=== PATIENT | female | born 1955 | race Caucasian/White ===

== ENCOUNTER 2017-09-15 00:23 | Inpatient (IN) | payer BC, OTHER ==
[~2017-09-15] VITALS: Ht 160 cm; Wt 85.1 kg
[2017-09-15] VITALS (11 sets, daily range): BP systolic 118–146; BP diastolic 52–77
[2017-09-15] MEDS ORDERED: SODIUM CHLORIDE 0.9% 1000ML 1,000 ML IV ONE ×3 (01:07→09:43)
[2017-09-15] MEDS ORDERED: ONDANSETRON HCL 4 MG/2 ML VIAL ONE (01:07)
[2017-09-15 01:22] LABS: BASOPHILS % (AUTO) 0.4 % (0.0-5.0); HEMATOCRIT 48.7 % (36-48); LYMPHOCYTES % (AUTO) 14.6 % (21.0-51.0); MEAN CORPUSCULAR HEMOGLOBIN 29.1 pg (27.0-33.0); MEAN CORPUSCULAR HGB CONC 33.8 g/dL (32.0-36.0); MEAN CORPUSCULAR VOLUME 86.1 fL (79-99); MONOCYTES % (AUTO) 4.3 % (3.0-13.0); NEUTROPHILS % (AUTO) 80.7 % (40.0-77.0); PLATELET COUNT (AUTO) 308 K/uL (130-400); RED BLOOD CELL COUNT(AUTO) 5.66 MIL/uL (4.00-5.50); RED CELL DISTRIBUTION WIDTH 13.6 % (11.0-15.5); WHITE BLOOD COUNT (AUTO) 9.4 K/uL (4.8-10.8)
[2017-09-15 01:47] LABS: ALBUMIN 4.1 g/dL (3.5-5.0); BILIRUBIN,TOTAL 0.6 mg/dL (0.2-1.0); CREATININE 1.5 mg/dL (0.5-1.5); INFLUENZA TYPE A NEGATIVE FOR TYPE A (NEG); INFLUENZA TYPE B NEGATIVE FOR TYPE B (NEG); POTASSIUM 3.9 mmol/L (3.5-5.1); TOTAL PROTEIN, SERUM 8.9 g/dL (6.0-8.3)
[2017-09-15 01:48] LABS: CREATINE KINASE MB 2.1 ng/mL (0.5-3.6); TROPONIN I 0.07 ng/mL (0.00-0.06)
[2017-09-15 03:22] LABS: ABG BASE EXCESS -17.1 mmol/L (-2.0-3.0); ABG HCO3 8.4 mmol/L (21.0-28.0); ABG PCO2 21 mmHg (32-45)
[2017-09-15] MEDS ORDERED: SODIUM BICARB 50MEQ 50ML VIAL ONE (04:30)
[2017-09-15] MEDS ORDERED: INSULIN HUMULIN R 100 UNIT/ML 3ML ONE (04:33)
[2017-09-15] MEDS ORDERED: SODIUM CHLORIDE 0.9% 250 ML IV ONE (04:36)
[2017-09-15] MEDS ORDERED: CEFTRIAXONE SODIUM 1 GM ONE (05:47)
[2017-09-15 08:14] LABS: APPEARANCE,URINE Clear (CLEAR); BILIRUBIN,URINE Negative (NEGATIVE); COLOR,URINE Yellow (YELLOW); GLUCOSE, URINE (UA) >=1000 mg/dL (NEGATIVE); KETONES,URINE >=160 mg/dL (NEGATIVE); LEUKOCYTE ESTERASE ,URINE Negative (NEGATIVE); NITRATE,URINE Negative (NEGATIVE); OCCULT BLOOD,URINE Negative (NEGATIVE); PH,URINE 5.5 (5.0-8.0); PROTEIN,URINE POS 1+ (NEGATIVE); UROBILINOGEN,URINE 0.2 mg/dL (0.2-1.0)
[2017-09-15 08:26] LABS: AMORPHOUS SEDIMENT,UR Few /LPF (None Seen); BACTERIA,URINE Rare /HPF (None Seen); RBC,URINE 0-1 /HPF (0-1); SQUAMOUS EPITHELIAL CELL,UR Rare /LPF (0-2); WBC,URINE 0-1 /HPF (0-1)
[2017-09-15] MEDS ORDERED: ENOXAPARIN SODIUM 40 MG/0.4 ML SYRINGE SQ ONE (09:43)
[2017-09-15] MEDS ORDERED: FAMOTIDINE 20MG TAB 20 MG TAB ONE (09:44)
[2017-09-15 10:09] LABS: CREATININE 1.1 mg/dL (0.5-1.5); MAGNESIUM 1.3 mg/dL (1.80-2.40); POTASSIUM 3.4 mmol/L (3.5-5.1)
[2017-09-15 10:15] LABS: HEMOGLOBIN A1C 10.9 % (4.0-6.0)
[2017-09-15] MEDS ORDERED: MAGNESIUM 2GM PREMIX 50ML 50 ML IV ONE (10:48)
[2017-09-15] MEDS ORDERED: POTASSIUM CHLORIDE 20 MEQ ERTAB PO ONE (10:53)
[2017-09-15] MEDS ORDERED: PHARMACY COMMUNICATION MISC SCH (15:00)
[2017-09-15] MEDS ORDERED: POTASSIUM CHLORIDE 20MEQ/100ML 100 ML IV PRN (15:00)
[2017-09-15] MEDS ORDERED: ACETAMINOPHEN 325 MG TAB PO PRN (15:00)
[2017-09-15] MEDS: SODIUM CHLORIDE 0.9% 1000ML 1,000 ML IV SCH ×3 (15:00→23:25)
[2017-09-15] MEDS ORDERED: ONDANSETRON HCL 4 MG/2 ML VIAL IVP PRN (15:00)
[2017-09-15] MEDS ORDERED: LIDOCAINE HCL-MPF 1% 2ML VIAL IVP PRN (15:00)
[2017-09-15] MEDS ORDERED: INSULIN REGULAR, HUMAN 3ML 100 UNIT in SODIUM CHLORIDE 0.9% 99 ML IV PRN ×2 (15:00)
[2017-09-15] MEDS ORDERED: MAGNESIUM 2GM PREMIX 50ML 50 ML IV PRN (15:30)
[2017-09-15] MEDS: AZITHROMYCIN 250 MG TABLET PO SCH (15:57)
[2017-09-15 16:45] LABS: CREATININE 1.1 mg/dL (0.5-1.5); MAGNESIUM 1.6 mg/dL (1.80-2.40); POTASSIUM 3.1 mmol/L (3.5-5.1)
[2017-09-15] MEDS: POTASSIUM CHLORIDE 20 MEQ ERTAB PO PRN (17:41)
[2017-09-15] MEDS: MAGNESIUM 2GM PREMIX 50ML 50 ML IV PRN ×2 (17:43→23:33)
[2017-09-15 22:40] LABS: CREATININE 1.1 mg/dL (0.5-1.5); MAGNESIUM 1.8 mg/dL (1.80-2.40); POTASSIUM 3.1 mmol/L (3.5-5.1)
[2017-09-15] MEDS: POTASSIUM CHLORIDE 10% ELIXIR 20 MEQ/15 ML UDCUP PO PRN (23:34)
[2017-09-16] VITALS (20 sets, daily range): BP systolic 96–145; BP diastolic 54–79
[2017-09-16] MEDS: POTASSIUM CHLORIDE 20 MEQ ERTAB PO PRN ×5 (02:19→17:45)
[2017-09-16 04:13] LABS: HEMATOCRIT 34.7 % (36-48); MEAN CORPUSCULAR HEMOGLOBIN 29.3 pg (27.0-33.0); MEAN CORPUSCULAR HGB CONC 35.3 g/dL (32.0-36.0); MEAN CORPUSCULAR VOLUME 82.9 fL (79-99); PLATELET COUNT (AUTO) 229 K/uL (130-400); RED BLOOD CELL COUNT(AUTO) 4.19 MIL/uL (4.00-5.50); RED CELL DISTRIBUTION WIDTH 13.2 % (11.0-15.5); WHITE BLOOD COUNT (AUTO) 6.9 K/uL (4.8-10.8)
[2017-09-16 04:27] LABS: ALBUMIN 2.7 g/dL (3.5-5.0); BILIRUBIN,TOTAL 0.3 mg/dL (0.2-1.0); CREATININE 1.1 mg/dL (0.5-1.5); MAGNESIUM 2.1 mg/dL (1.80-2.40); POTASSIUM 3.1 mmol/L (3.5-5.1)
[2017-09-16] MEDS ORDERED: SODIUM CHLORIDE 0.9% 10 ML VIAL ONE (04:33)
[2017-09-16] MEDS ORDERED: WATER FOR INJECTION,STERILE 5 ML VIAL ONE (04:37)
[2017-09-16] MEDS ORDERED: ATOR10 PO (05:20)
[2017-09-16] MEDS ORDERED: DICL50TA9 PO (05:20)
[2017-09-16] MEDS ORDERED: LISI-613 PO (05:20)
[2017-09-16] MEDS ORDERED: GABA-531 PO (05:23)
[2017-09-16] MEDS ORDERED: AEC81 PO (05:23)
[2017-09-16] MEDS ORDERED: CYCL10TA7 PO (05:23)
[2017-09-16] MEDS ORDERED: SERT100T PO (05:24)
[2017-09-16] MEDS ORDERED: ZOLP10TA2 PO (05:25)
[2017-09-16] MEDS: CEFTRIAXONE SODIUM 1 GM IVP SCH (05:55)
[2017-09-16] MEDS: SODIUM CHLORIDE 0.9% 1000ML 1,000 ML IV SCH ×2 (05:55→15:59)
[2017-09-16] MEDS ORDERED: CEFTRIAXONE 1GM/D5W 50ML 50 ML IV SCH (06:00)
[2017-09-16] MEDS ORDERED: ALBUMIN (HUMAN) 25% 100 ML IV PRN (08:15)
[2017-09-16] MEDS ORDERED: 0.9% SODIUM CHLORIDE 250 ML IV BAG IV PRN (08:15)
[2017-09-16] MEDS ORDERED: HEPARIN SODIUM 5000UNIT/ML 1ML VIAL IJ PRN (08:15)
[2017-09-16] MEDS ORDERED: SODIUM CHLORIDE 0.9% 1000ML 1,000 ML IV PRN (08:15)
[2017-09-16] MEDS ORDERED: GLUCAGON 1MG KIT 1 MG ML IM PRN (08:30)
[2017-09-16] MEDS ORDERED: DEXTROSE 50%-WATER 50 ML DISP.SYRIN IV PRN (08:30)
[2017-09-16] MEDS ORDERED: INSULIN HUMULIN 70/30 100 UNIT/ML 3ML SQ SCH (08:30)
[2017-09-16] MEDS: AZITHROMYCIN 250 MG TABLET PO SCH (08:51)
[2017-09-16] MEDS: ENOXAPARIN SODIUM 40 MG/0.4 ML SYRINGE SQ SCH (08:53)
[2017-09-16] MEDS: FAMOTIDINE 20MG TAB 20 MG TAB PO SCH (08:56)
[2017-09-16] MEDS ORDERED: ENOXAPARIN SODIUM 30 MG/0.3 ML SQ SCH (09:00)
[2017-09-16 10:16] LABS: CREATININE 0.9 mg/dL (0.5-1.5); MAGNESIUM 1.8 mg/dL (1.80-2.40); POTASSIUM 3.4 mmol/L (3.5-5.1)
[2017-09-16] MEDS ORDERED: INSULIN HUMULIN R 100 UNIT/ML 3ML SQ SCH (11:30)
[2017-09-16] MEDS: MAGNESIUM 2GM PREMIX 50ML 50 ML IV PRN (11:54)
[2017-09-16] MEDS: POTASSIUM CHLORIDE 10% ELIXIR 20 MEQ/15 ML UDCUP PO PRN (11:54)
[2017-09-16] MEDS: INSULIN HUMULIN R 100 UNIT/ML 3ML SQ SCH ×3 (11:55→20:21)
[2017-09-16] MEDS ORDERED: INS7030 SQ (15:23)
[2017-09-16 16:08] LABS: HEMATOCRIT 35.4 % (36-48); MEAN CORPUSCULAR HGB CONC 34.6 g/dL (32.0-36.0); MEAN CORPUSCULAR VOLUME 83.7 fL (79-99); PLATELET COUNT (AUTO) 222 K/uL (130-400); RED BLOOD CELL COUNT(AUTO) 4.23 MIL/uL (4.00-5.50); RED CELL DISTRIBUTION WIDTH 13.4 % (11.0-15.5); WHITE BLOOD COUNT (AUTO) 6.6 K/uL (4.8-10.8)
[2017-09-16 16:14] LABS: POTASSIUM 3.6 mmol/L (3.5-5.1)
[2017-09-16] MEDS: INSULIN HUMULIN 70/30 100 UNIT/ML 3ML SQ SCH (16:18)
[2017-09-16] MEDS ORDERED: ZOLPIDEM TARTRATE 5 MG TAB ONE (21:00)
[2017-09-16] MEDS ORDERED: ZOLPIDEM TARTRATE 5 MG TAB PO ONE (21:00)
[2017-09-17] VITALS: BP 138/71
[2017-09-17 04:00] VITALS: BP 153/78
[2017-09-17] MEDS: INSULIN HUMULIN R 100 UNIT/ML 3ML SQ SCH ×6 (04:00→19:44)
[2017-09-17 05:18] LABS: HEMATOCRIT 36.1 % (36-48); MEAN CORPUSCULAR HEMOGLOBIN 29.6 pg (27.0-33.0); MEAN CORPUSCULAR HGB CONC 35.4 g/dL (32.0-36.0); MEAN CORPUSCULAR VOLUME 83.7 fL (79-99); PLATELET COUNT (AUTO) 212 K/uL (130-400); RED BLOOD CELL COUNT(AUTO) 4.31 MIL/uL (4.00-5.50); RED CELL DISTRIBUTION WIDTH 13.8 % (11.0-15.5); WHITE BLOOD COUNT (AUTO) 6.3 K/uL (4.8-10.8)
[2017-09-17 05:22] LABS: CREATININE 0.6 mg/dL (0.5-1.5); MAGNESIUM 1.9 mg/dL (1.80-2.40); POTASSIUM 3.7 mmol/L (3.5-5.1)
[2017-09-17] MEDS: CEFTRIAXONE SODIUM 1 GM IVP SCH (06:23)
[2017-09-17] MEDS: INSULIN HUMULIN 70/30 100 UNIT/ML 3ML SQ SCH ×2 (06:24→16:53)
[2017-09-17 07:38] VITALS: BP 150/76
[2017-09-17] MEDS: AZITHROMYCIN 250 MG TABLET PO SCH (09:26)
[2017-09-17] MEDS: FAMOTIDINE 20MG TAB 20 MG TAB PO SCH (09:26)
[2017-09-17] MEDS: ENOXAPARIN SODIUM 40 MG/0.4 ML SYRINGE SQ SCH (09:27)
[2017-09-17] MEDS: POTASSIUM CHLORIDE 20 MEQ ERTAB PO PRN ×2 (09:41→10:14)
[2017-09-17] MEDS: MAGNESIUM 2GM PREMIX 50ML 50 ML IV PRN (09:41)
[2017-09-17 11:42] VITALS: BP 132/67
[2017-09-17] MEDS: SODIUM CHLORIDE 0.9% 1000ML 1,000 ML IV SCH (15:29)
[2017-09-17 16:00] VITALS: BP 143/71
[2017-09-17 19:52] VITALS: BP 143/90
[2017-09-17] MEDS ORDERED: ZOLPIDEM TARTRATE 5 MG TAB PO ONE (21:30)
[2017-09-18 00:17] VITALS: BP 136/72
[2017-09-18] MEDS: INSULIN HUMULIN R 100 UNIT/ML 3ML SQ SCH ×5 (00:42→16:00)
[2017-09-18 04:06] VITALS: BP 141/82
[2017-09-18] MEDS: CEFTRIAXONE SODIUM 1 GM IVP SCH (05:41)
[2017-09-18] MEDS: INSULIN HUMULIN 70/30 100 UNIT/ML 3ML SQ SCH ×2 (05:50→16:30)
[2017-09-18 07:00] VITALS: BP 144/79
[2017-09-18] MEDS: FAMOTIDINE 20MG TAB 20 MG TAB PO SCH (09:21)
[2017-09-18] MEDS: AZITHROMYCIN 250 MG TABLET PO SCH (09:21)
[2017-09-18] MEDS: ENOXAPARIN SODIUM 40 MG/0.4 ML SYRINGE SQ SCH (09:22)
[2017-09-18 11:00] VITALS: BP 149/78
== END 2017-09-18 16:55 | disposition home or self-care (01) | DRG 682 ==
LOC: EDH 00:23 → EDHIP 04:00 → 2CH 14:09 → 2BH 15:21 → 2AH 09-16 18:16
PROVIDERS: ADMIT Internal Medicine; ATTEND Internal Medicine
DX: N17.9 Acute kidney failure, unspecified (principal); J18.9 Pneumonia, unspecified organism; E11.10 Type 2 diabetes mellitus with ketoacidosis without coma; E87.1 Hypo-osmolality and hyponatremia; N39.0 Urinary tract infection, site not specified; R26.2 Difficulty in walking, not elsewhere classified; E87.6 Hypokalemia; E83.42 Hypomagnesemia; E66.9 Obesity, unspecified; G47.00 Insomnia, unspecified; E87.8 Other disorders of electrolyte and fluid balance, not elsewhere classified; I10 Essential (primary) hypertension; E78.5 Hyperlipidemia, unspecified; Z90.710 Acquired absence of both cervix and uterus; Z90.49 Acquired absence of other specified parts of digestive tract; Z88.0 Allergy status to penicillin; Z79.4 Long term (current) use of insulin; Z91.14 Patient's other noncompliance with medication regimen; Z86.73 Personal history of transient ischemic attack (TIA), and cerebral infarction without residual deficits; Z86.19 Personal history of other infectious and parasitic diseases; Z68.33 Body mass index [BMI] 33.0-33.9, adult
CPT/HCPCS: 36415; 36600; 71010; 80048; 80053; 81001; 82009; 82550; 82553; 82803; 82948; 83036; 83605; 83690; 83735; 83874; 84484; 85025; 85027; 87804; 93005; J0696; J1650; J1815; J2405; J3475; J3480; J3490; J7030

== ENCOUNTER 2017-11-22 13:03 | Inpatient (IN) | payer BC, MEDICARE ==
[~2017-11-22] VITALS: Ht 160 cm; Wt 95.3 kg
[~2017-11-22 13:03] MED LIST: AEC81 PO; ATOR10 PO; CYCL10TA7 PO; DICL50TA9 PO; GABA-531 PO; INS7030 SQ; LISI-613 PO; SERT100T PO; ZOLP10TA2 PO
[2017-11-22] MEDS ORDERED: SODIUM CHLORIDE 0.9% 1000ML 3,000 ML IV ONE (13:58)
[2017-11-22 14:00] LABS: HEMATOCRIT 36.1 % (36-48); MEAN CORPUSCULAR HEMOGLOBIN 28.7 pg (27.0-33.0); MEAN CORPUSCULAR VOLUME 84.4 fL (79-99); PLATELET COUNT (AUTO) 344 K/uL (130-400); RED BLOOD CELL COUNT(AUTO) 4.28 MIL/uL (4.00-5.50); RED CELL DISTRIBUTION WIDTH 13.7 % (11.0-15.5)
[2017-11-22 14:14] LABS: WHITE BLOOD COUNT (AUTO) 31.4 K/uL (4.8-10.8)
[2017-11-22] MEDS ORDERED: CEFTRIAXONE SODIUM 1 GM ONE (14:24)
[2017-11-22 14:40] LABS: ALANINE AMINOTRANSFERASE 12 U/L (12-78); ALBUMIN 2.8 g/dL (3.5-5.0); ASPARTATE AMINOTRANSFERASE 11 U/L (10-37); BILIRUBIN,TOTAL 0.9 mg/dL (0.2-1.0); CARBON DIOXIDE 26 mmol/L (21-32); CREATINE KINASE MB < 0.5 ng/mL (0.5-3.6); CREATINE KINASE, TOTAL 34 U/L (21-232); CREATININE 1.3 mg/dL (0.5-1.5); GLOMERULAR FILTR. RATE CALC 44 mL/min (>60); GLUCOSE,RANDOM 386 mg/dL (70-105); MYOGLOBIN 62 ng/mL (10-92); POTASSIUM 3.7 mmol/L (3.5-5.1); SODIUM SERUM 126 mmol/L (136-145); TOTAL PROTEIN, SERUM 8.5 g/dL (6.0-8.3); TROPONIN I < 0.04 ng/mL (0.00-0.06); UREA NITROGEN, BLOOD 23 mg/dL (7-18)
[2017-11-22 14:41] LABS: INR 1.14 (0.85-1.15); PARTIAL THROMBOPLASTIN TIME 35.1 SEC (26.3-35.5); PROTHROMBIN TIME 11.9 SEC (9.6-11.6)
[2017-11-22 14:44] LABS: CHLORIDE 88 mmol/L (101-111)
[2017-11-22 14:57] LABS: LYMPHOCYTES % (MANUAL) 7 % (22-44); MAN.DIFF COMMENT-IMPRESSION MANUAL DIFFERENTIAL; MONOCYTES % (MANUAL) 1 % (2-9); SEGMENTED NEUTROPHILS % 92 % (40-70)
[2017-11-22 14:58] LABS: PLATELET MORPHOLOGY COMMENT ADEQUATE
[2017-11-22] MEDS ORDERED: TRAMADOL HCL 50 MG TABLET ONE (16:41)
[2017-11-23] MEDS ORDERED: VANCOMYCIN 1GM+NS 250ML 250 ML IV ONE (03:13)
[2017-11-23 07:08] LABS: BASOPHILS % (AUTO) 0.2 % (0.0-5.0); EOSINOPHILS % (AUTO) 0.1 % (0.0-8.0); LYMPHOCYTES % (AUTO) 4.2 % (21.0-51.0); MEAN CORPUSCULAR HEMOGLOBIN 28.5 pg (27.0-33.0); MEAN CORPUSCULAR HGB CONC 33.4 g/dL (32.0-36.0); MEAN CORPUSCULAR VOLUME 85.4 fL (79-99); MONOCYTES % (AUTO) 4.8 % (3.0-13.0); NEUTROPHILS % (AUTO) 90.7 % (40.0-77.0); PLATELET COUNT (AUTO) 324 K/uL (130-400); RED BLOOD CELL COUNT(AUTO) 3.99 MIL/uL (4.00-5.50); RED CELL DISTRIBUTION WIDTH 13.6 % (11.0-15.5); WHITE BLOOD COUNT (AUTO) 22.9 K/uL (4.8-10.8)
[2017-11-23 07:20] LABS: CREATININE 0.8 mg/dL (0.5-1.5); POTASSIUM 3.9 mmol/L (3.5-5.1)
[2017-11-23] MEDS ORDERED: INSULIN HUMULIN R 100 UNIT/ML 3ML ONE ×2 (09:25→19:41)
[2017-11-23 12:12] LABS: APPEARANCE,URINE Clear (CLEAR); BILIRUBIN,URINE Negative (NEGATIVE); COLOR,URINE Yellow (YELLOW); GLUCOSE, URINE (UA) >=1000 mg/dL (NEGATIVE); KETONES,URINE 40 mg/dL (NEGATIVE); LEUKOCYTE ESTERASE ,URINE Small (NEGATIVE); NITRATE,URINE Positive (NEGATIVE); OCCULT BLOOD,URINE Moderate (NEGATIVE); PH,URINE 5.5 (5.0-8.0); PROTEIN,URINE POS 1+ (NEGATIVE); UROBILINOGEN,URINE 0.2 mg/dL (0.2-1.0)
[2017-11-23 12:31] LABS: BACTERIA,URINE Few /HPF (None Seen); SQUAMOUS EPITHELIAL CELL,UR 0-2 /LPF (0-2); WBC,URINE 26-50 /HPF (0-1)
[2017-11-23] MEDS ORDERED: CEFAZOLIN SODIUM 1 GM VIAL ONE (17:29)
[2017-11-23] MEDS ORDERED: ACETAMINOPHEN 325 MG TAB ONE (17:29)
[2017-11-23] MEDS ORDERED: CEFAZOLIN 1GM / D5W 50ML 50 ML IV SCH (17:45)
[2017-11-23] MEDS ORDERED: PHARMACY COMMUNICATION MISC SCH (17:45)
[2017-11-23] MEDS ORDERED: METOPROLOL TARTRATE 1 MG/ML 5ML VIAL IV ONE ×2 (19:18→20:46)
[2017-11-23] MEDS ORDERED: VANCOMYCIN PROTOCOL PER PHARMACY IV SCH (19:45)
[2017-11-23] MEDS ORDERED: METOPROLOL TARTRATE 25 MG TAB ONE (20:32)
[2017-11-23 21:04] LABS: CREATINE KINASE MB 1.1 ng/mL (0.5-3.6); MYOGLOBIN 95 ng/mL (10-92); TROPONIN I < 0.04 ng/mL (0.00-0.06)
[2017-11-23 21:14] LABS: CREATINE KINASE, TOTAL 588 U/L (21-232)
[2017-11-23] MEDS ORDERED: COMPOUND IV REFRIGERATED 1 EACH IVSOLN MISC PRN (21:15)
[2017-11-23 21:30] VITALS: BP 114/78
[2017-11-23] MEDS ORDERED: VANCOMYCIN 2 GM in SODIUM CHLORIDE 0.9% 500ML 500 ML IV ONE (22:00)
[2017-11-24] VITALS (7 sets, daily range): BP systolic 129–156; BP diastolic 68–90
[2017-11-24] MEDS ORDERED: CEFAZOLIN SODIUM 1 GM VIAL IVP ONE
[2017-11-24] MEDS ORDERED: DEXTROSE 50%-WATER 50 ML DISP.SYRIN IV PRN (00:45)
[2017-11-24] MEDS ORDERED: GLUCAGON 1MG KIT 1 MG ML IM PRN (00:45)
[2017-11-24] MEDS ORDERED: CEFAZOLIN SODIUM 1 GM VIAL ONE (02:42)
[2017-11-24 04:13] LABS: BASOPHILS % (AUTO) 0.1 % (0.0-5.0); EOSINOPHILS % (AUTO) 0.1 % (0.0-8.0); HEMATOCRIT 33.8 % (36-48); LYMPHOCYTES % (AUTO) 5.8 % (21.0-51.0); MEAN CORPUSCULAR HEMOGLOBIN 28.4 pg (27.0-33.0); MEAN CORPUSCULAR HGB CONC 33.4 g/dL (32.0-36.0); MONOCYTES % (AUTO) 5.4 % (3.0-13.0); NEUTROPHILS % (AUTO) 88.6 % (40.0-77.0); PLATELET COUNT (AUTO) 325 K/uL (130-400); RED BLOOD CELL COUNT(AUTO) 3.98 MIL/uL (4.00-5.50); RED CELL DISTRIBUTION WIDTH 13.8 % (11.0-15.5); WHITE BLOOD COUNT (AUTO) 16.6 K/uL (4.8-10.8)
[2017-11-24 04:44] LABS: ALANINE AMINOTRANSFERASE 21 U/L (12-78); ASPARTATE AMINOTRANSFERASE 38 U/L (10-37); BILIRUBIN,TOTAL 0.4 mg/dL (0.2-1.0); CARBON DIOXIDE 25 mmol/L (21-32); CHLORIDE 97 mmol/L (101-111); CREATINE KINASE MB 0.9 ng/mL (0.5-3.6); CREATININE 0.7 mg/dL (0.5-1.5); GLOMERULAR FILTR. RATE CALC 90 mL/min (>60); GLUCOSE,RANDOM 262 mg/dL (70-105); MYOGLOBIN 61 ng/mL (10-92); POTASSIUM 3.8 mmol/L (3.5-5.1); SODIUM SERUM 132 mmol/L (136-145); TOTAL PROTEIN, SERUM 7.6 g/dL (6.0-8.3); TROPONIN I < 0.04 ng/mL (0.00-0.06); UREA NITROGEN, BLOOD 11 mg/dL (7-18)
[2017-11-24 05:05] LABS: CREATINE KINASE, TOTAL 479 U/L (21-232)
[2017-11-24] MEDS: VANCOMYCIN 1GM+NS 250ML 250 ML IV SCH ×2 (05:18→17:34)
[2017-11-24] MEDS: INSULIN HUMULIN R 100 UNIT/ML 3ML SQ SCH ×4 (06:10→21:02)
[2017-11-24 08:27] LABS: CREATINE KINASE MB 0.8 ng/mL (0.5-3.6); MYOGLOBIN 63 ng/mL (10-92); TROPONIN I < 0.04 ng/mL (0.00-0.06)
[2017-11-24 08:38] LABS: CREATINE KINASE, TOTAL 404 U/L (21-232)
[2017-11-24] MEDS: GABAPENTIN 300 MG CAPSULE PO SCH ×3 (10:08→20:59)
[2017-11-24] MEDS: ASPIRIN 81 MG EC TAB PO SCH (10:08)
[2017-11-24] MEDS: ACETAMINOPHEN 325 MG TAB PO PRN ×2 (10:08→23:09)
[2017-11-24] MEDS: LISINOPRIL 20 MG TABLET PO SCH (10:09)
[2017-11-24] MEDS: SERTRALINE HCL 50 MG TABLET PO SCH (10:09)
[2017-11-24] MEDS: MAGNESIUM 2GM PREMIX 50ML 50 ML IV PRN (10:09)
[2017-11-24] MEDS: METOPROLOL TARTRATE 25 MG TAB PO SCH ×2 (10:09→20:59)
[2017-11-24] MEDS: SODIUM CHLORIDE 0.9% 1000ML 1,000 ML IV SCH (10:11)
[2017-11-24] MEDS ORDERED: CEFAZOLIN 1GM / D5W 50ML 50 ML IV SCH (11:00)
[2017-11-24] MEDS ORDERED: PHARMACY COMMUNICATION MISC SCH (11:30)
[2017-11-24] MEDS: MAG HYDROX/AL HYDROX/SIMETH 30 ML, LIDOCAINE HCL 2% VISCOUS 30 ML, DIPHENHYDRAMINE HCL ... PO SCH ×9 (11:45→23:12)
[2017-11-24] MEDS ORDERED: COMPOUND PO MISCELLANEOUS 1 EACH MISC MISC PRN (13:00)
[2017-11-24] MEDS ORDERED: GADOBENATE DIMEGLUMINE 20 ML IV ONE (16:09)
[2017-11-24] MEDS ORDERED: CEFAZOLIN SODIUM 1 GM VIAL IVP SCH (17:00)
[2017-11-24] MEDS: CEFAZOLIN SODIUM 1 GM VIAL IVP SCH ×2 (17:33→21:00)
[2017-11-24] MEDS: INSULIN HUMULIN 70/30 100 UNIT/ML 3ML SQ SCH (17:38)
[2017-11-24] MEDS: ATORVASTATIN CALCIUM 10 MG TABLET PO SCH (20:59)
[2017-11-24] MEDS: ZOLPIDEM TARTRATE 5 MG TAB PO SCH (21:00)
[2017-11-25] VITALS (12 sets, daily range): BP systolic 112–159; BP diastolic 54–107
[2017-11-25] MEDS: MORPHINE SULFATE 2 MG/ML 1ML SYG IVP PRN ×2 (02:08→20:12)
[2017-11-25] MEDS ORDERED: METOPROLOL TARTRATE 1 MG/ML 5ML VIAL IV ONE ×4 (02:26→04:46)
[2017-11-25] MEDS: CEFAZOLIN SODIUM 1 GM VIAL IVP SCH ×3 (03:05→21:15)
[2017-11-25] MEDS: SODIUM CHLORIDE 0.9% 1000ML 1,000 ML IV SCH ×2 (03:05→21:31)
[2017-11-25] MEDS: MAG HYDROX/AL HYDROX/SIMETH 30 ML, LIDOCAINE HCL 2% VISCOUS 30 ML, DIPHENHYDRAMINE HCL ... PO SCH ×12 (05:01→23:45)
[2017-11-25] MEDS: VANCOMYCIN 1GM+NS 250ML 250 ML IV SCH ×2 (05:01→16:58)
[2017-11-25] MEDS: INSULIN HUMULIN 70/30 100 UNIT/ML 3ML SQ SCH ×2 (06:19→16:34)
[2017-11-25] MEDS: INSULIN HUMULIN R 100 UNIT/ML 3ML SQ SCH ×4 (06:21→21:00)
[2017-11-25] MEDS: MAGNESIUM 2GM PREMIX 50ML 50 ML IV PRN (07:57)
[2017-11-25] MEDS: LISINOPRIL 20 MG TABLET PO SCH (08:02)
[2017-11-25] MEDS: ASPIRIN 81 MG EC TAB PO SCH (08:02)
[2017-11-25] MEDS: METOPROLOL TARTRATE 25 MG TAB PO SCH ×3 (08:06→21:16)
[2017-11-25] MEDS: SERTRALINE HCL 50 MG TABLET PO SCH (08:11)
[2017-11-25] MEDS: GABAPENTIN 300 MG CAPSULE PO SCH ×3 (08:11→21:16)
[2017-11-25] MEDS: METOPROLOL TARTRATE 1 MG/ML 5ML VIAL IV PRN ×2 (08:45→09:52)
[2017-11-25] MEDS: ACETAMINOPHEN 325 MG TAB PO PRN (09:46)
[2017-11-25] MEDS ORDERED: POTASSIUM CHLORIDE 20MEQ/100ML 100 ML IV ONE (10:27)
[2017-11-25] MEDS: ATORVASTATIN CALCIUM 10 MG TABLET PO SCH (21:16)
[2017-11-25] MEDS: ZOLPIDEM TARTRATE 5 MG TAB PO SCH (21:20)
[2017-11-26 03:33] VITALS: BP 124/71
[2017-11-26] MEDS: CEFAZOLIN SODIUM 1 GM VIAL IVP SCH ×3 (04:21→21:26)
[2017-11-26 04:22] LABS: MEAN CORPUSCULAR HEMOGLOBIN 28.8 pg (27.0-33.0); MEAN CORPUSCULAR HGB CONC 33.9 g/dL (32.0-36.0); MEAN CORPUSCULAR VOLUME 84.9 fL (79-99); NUCLEATED RED BLOOD CELLS 0.1 % (0.0-0.19); PLATELET COUNT (AUTO) 439 K/uL (130-400); RED BLOOD CELL COUNT(AUTO) 3.66 MIL/uL (4.00-5.50); RED CELL DISTRIBUTION WIDTH 13.8 % (11.0-15.5); WHITE BLOOD COUNT (AUTO) 10.7 K/uL (4.8-10.8)
[2017-11-26 04:35] LABS: ALBUMIN 1.7 g/dL (3.5-5.0); BILIRUBIN,TOTAL 0.4 mg/dL (0.2-1.0); CREATININE 0.7 mg/dL (0.5-1.5); MAGNESIUM 1.4 mg/dL (1.80-2.40); POTASSIUM 3.1 mmol/L (3.5-5.1); TOTAL PROTEIN, SERUM 7.5 g/dL (6.0-8.3)
[2017-11-26] MEDS ORDERED: POTASSIUM CHLORIDE 20 MEQ ERTAB PO ONE (05:33)
[2017-11-26] MEDS: MAG HYDROX/AL HYDROX/SIMETH 30 ML, LIDOCAINE HCL 2% VISCOUS 30 ML, DIPHENHYDRAMINE HCL ... PO SCH ×12 (05:45→23:45)
[2017-11-26] MEDS ORDERED: COMPOUND IV REFRIGERATED 1 EACH IVSOLN MISC PRN (06:45)
[2017-11-26] MEDS: INSULIN HUMULIN R 100 UNIT/ML 3ML SQ SCH ×4 (06:52→21:30)
[2017-11-26] MEDS: INSULIN HUMULIN 70/30 100 UNIT/ML 3ML SQ SCH ×2 (06:53→16:30)
[2017-11-26] MEDS ORDERED: VANCOMYCIN 1.25 GM in SODIUM CHLORIDE 0.9% 250 ML IV SCH (07:00)
[2017-11-26 07:30] VITALS: BP 139/84
[2017-11-26] MEDS: ASPIRIN 81 MG EC TAB PO SCH (08:51)
[2017-11-26] MEDS: LISINOPRIL 20 MG TABLET PO SCH (08:51)
[2017-11-26] MEDS: SERTRALINE HCL 50 MG TABLET PO SCH ×2 (08:51→21:27)
[2017-11-26] MEDS: GABAPENTIN 300 MG CAPSULE PO SCH ×3 (08:51→21:28)
[2017-11-26] MEDS: METOPROLOL TARTRATE 25 MG TAB PO SCH ×3 (08:52→21:28)
[2017-11-26] MEDS: VANCOMYCIN 1.25 GM in SODIUM CHLORIDE 0.9% 250 ML IV SCH ×2 (08:52→21:26)
[2017-11-26] MEDS: MORPHINE SULFATE 2 MG/ML 1ML SYG IVP PRN ×2 (10:41→22:42)
[2017-11-26] MEDS: MAGNESIUM 2GM PREMIX 50ML 50 ML IV PRN (10:42)
[2017-11-26 11:18] VITALS: BP 150/72
[2017-11-26] MEDS ORDERED: ENOXAPARIN SODIUM 30 MG/0.3 ML SQ SCH (12:15)
[2017-11-26 16:38] VITALS: BP 139/77
[2017-11-26] MEDS ORDERED: POTASSIUM CHLORIDE 20 MEQ ERTAB PO PRN (19:15)
[2017-11-26] MEDS ORDERED: LIDOCAINE HCL-MPF 1% 2ML VIAL IVP PRN (19:15)
[2017-11-26] MEDS ORDERED: POTASSIUM CHLORIDE 10% ELIXIR 20 MEQ/15 ML UDCUP PO PRN (19:15)
[2017-11-26] MEDS ORDERED: POTASSIUM CHLORIDE 20MEQ/100ML 100 ML IV PRN (19:15)
[2017-11-26 19:43] VITALS: BP 151/73
[2017-11-26] MEDS: SODIUM CHLORIDE 0.9% 1000ML 1,000 ML IV SCH ×2 (20:00→21:35)
[2017-11-26] MEDS: ZOLPIDEM TARTRATE 5 MG TAB PO SCH (21:27)
[2017-11-26] MEDS: MAGNESIUM OXIDE 400 MG TABLET PO SCH (21:27)
[2017-11-26] MEDS: ATORVASTATIN CALCIUM 20 MG TABLET PO SCH (21:27)
[2017-11-26 23:37] VITALS: BP 142/77
[2017-11-27 03:29] VITALS: BP 147/78
[2017-11-27] MEDS: CEFAZOLIN SODIUM 1 GM VIAL IVP SCH ×3 (04:36→23:05)
[2017-11-27] MEDS: MAG HYDROX/AL HYDROX/SIMETH 30 ML, LIDOCAINE HCL 2% VISCOUS 30 ML, DIPHENHYDRAMINE HCL ... PO SCH ×12 (05:45→23:11)
[2017-11-27] MEDS: INSULIN HUMULIN R 100 UNIT/ML 3ML SQ SCH ×4 (06:40→23:01)
[2017-11-27] MEDS: INSULIN HUMULIN 70/30 100 UNIT/ML 3ML SQ SCH ×2 (06:53→17:13)
[2017-11-27 07:00] VITALS: BP 163/82
[2017-11-27] MEDS: ASPIRIN 81 MG EC TAB PO SCH (09:58)
[2017-11-27] MEDS: METOPROLOL TARTRATE 25 MG TAB PO SCH ×3 (09:58→23:07)
[2017-11-27] MEDS: GABAPENTIN 300 MG CAPSULE PO SCH ×3 (09:58→23:10)
[2017-11-27] MEDS: MAGNESIUM OXIDE 400 MG TABLET PO SCH ×2 (09:58→23:07)
[2017-11-27] MEDS: LISINOPRIL 20 MG TABLET PO SCH (09:59)
[2017-11-27] MEDS: ENOXAPARIN SODIUM 30 MG/0.3 ML SQ SCH (09:59)
[2017-11-27] MEDS: VANCOMYCIN 1.25 GM in SODIUM CHLORIDE 0.9% 250 ML IV SCH (10:05)
[2017-11-27 11:00] VITALS: BP 128/74
[2017-11-27] MEDS: MORPHINE SULFATE 2 MG/ML 1ML SYG IVP PRN (12:11)
[2017-11-27 16:00] VITALS: BP 136/87
[2017-11-27 19:56] VITALS: BP 146/76
[2017-11-27] MEDS: VANCOMYCIN 1.5 GM in SODIUM CHLORIDE 0.9% 250 ML IV SCH (23:06)
[2017-11-27] MEDS: SERTRALINE HCL 50 MG TABLET PO SCH (23:07)
[2017-11-27] MEDS: ATORVASTATIN CALCIUM 20 MG TABLET PO SCH (23:07)
[2017-11-27] MEDS: ZOLPIDEM TARTRATE 5 MG TAB PO SCH (23:23)
[2017-11-27 23:54] VITALS: BP 164/81
[2017-11-28] MEDS: SODIUM CHLORIDE 0.9% 1000ML 1,000 ML IV SCH (03:49)
[2017-11-28 03:58] VITALS: BP 149/80
[2017-11-28] MEDS: CEFAZOLIN SODIUM 1 GM VIAL IVP SCH ×3 (05:16→20:44)
[2017-11-28] MEDS: MAG HYDROX/AL HYDROX/SIMETH 30 ML, LIDOCAINE HCL 2% VISCOUS 30 ML, DIPHENHYDRAMINE HCL ... PO SCH ×12 (05:24→23:45)
[2017-11-28] MEDS: ACETAMINOPHEN 325 MG TAB PO PRN (05:25)
[2017-11-28] MEDS: INSULIN HUMULIN R 100 UNIT/ML 3ML SQ SCH ×4 (06:17→20:41)
[2017-11-28] MEDS: INSULIN HUMULIN 70/30 100 UNIT/ML 3ML SQ SCH ×2 (06:41→18:02)
[2017-11-28 07:00] VITALS: BP 155/80
[2017-11-28] MEDS: MAGNESIUM OXIDE 400 MG TABLET PO SCH ×2 (08:09→20:45)
[2017-11-28] MEDS: LISINOPRIL 20 MG TABLET PO SCH (08:09)
[2017-11-28] MEDS: ENOXAPARIN SODIUM 30 MG/0.3 ML SQ SCH (08:09)
[2017-11-28] MEDS: ASPIRIN 81 MG EC TAB PO SCH (08:10)
[2017-11-28] MEDS: VANCOMYCIN 1.5 GM in SODIUM CHLORIDE 0.9% 250 ML IV SCH ×2 (08:14→20:45)
[2017-11-28] MEDS: GABAPENTIN 300 MG CAPSULE PO SCH ×3 (08:14→20:46)
[2017-11-28] MEDS: METOPROLOL TARTRATE 25 MG TAB PO SCH (08:14)
[2017-11-28 09:09] LABS: BASOPHILS % (AUTO) 0.5 % (0.0-5.0); EOSINOPHILS % (AUTO) 1.4 % (0.0-8.0); HEMATOCRIT 33.9 % (36-48); LYMPHOCYTES % (AUTO) 16.1 % (21.0-51.0); MEAN CORPUSCULAR HEMOGLOBIN 28.3 pg (27.0-33.0); MEAN CORPUSCULAR HGB CONC 33.2 g/dL (32.0-36.0); MEAN CORPUSCULAR VOLUME 85.2 fL (79-99); PLATELET COUNT (AUTO) 571 K/uL (130-400); RED BLOOD CELL COUNT(AUTO) 3.97 MIL/uL (4.00-5.50); RED CELL DISTRIBUTION WIDTH 14.3 % (11.0-15.5); WHITE BLOOD COUNT (AUTO) 8.7 K/uL (4.8-10.8)
[2017-11-28 09:30] LABS: CREATININE 0.7 mg/dL (0.5-1.5); POTASSIUM 3.7 mmol/L (3.5-5.1)
[2017-11-28 11:00] VITALS: BP 134/76
[2017-11-28] MEDS: MORPHINE SULFATE 2 MG/ML 1ML SYG IVP PRN ×2 (13:09→22:04)
[2017-11-28 16:00] VITALS: BP 140/83
[2017-11-28 19:51] VITALS: BP 89/55
[2017-11-28] MEDS: SERTRALINE HCL 50 MG TABLET PO SCH (20:45)
[2017-11-28] MEDS: ATORVASTATIN CALCIUM 20 MG TABLET PO SCH (20:45)
[2017-11-28 21:13] VITALS: BP 158/90
[2017-11-28] MEDS: ZOLPIDEM TARTRATE 5 MG TAB PO SCH (23:05)
[2017-11-29] VITALS (7 sets, daily range): BP systolic 140–165; BP diastolic 70–94
[2017-11-29] MEDS: METOPROLOL TARTRATE 25 MG TAB PO SCH ×3 (00:16→20:53)
[2017-11-29] MEDS: CEFAZOLIN SODIUM 1 GM VIAL IVP SCH ×3 (03:54→19:54)
[2017-11-29] MEDS: MAG HYDROX/AL HYDROX/SIMETH 30 ML, LIDOCAINE HCL 2% VISCOUS 30 ML, DIPHENHYDRAMINE HCL ... PO SCH ×12 (05:45→23:23)
[2017-11-29] MEDS: INSULIN HUMULIN R 100 UNIT/ML 3ML SQ SCH ×4 (06:13→20:51)
[2017-11-29] MEDS: SODIUM CHLORIDE 0.9% 1000ML 1,000 ML IV SCH (08:00)
[2017-11-29] MEDS: INSULIN HUMULIN 70/30 100 UNIT/ML 3ML SQ SCH ×2 (08:06→16:44)
[2017-11-29] MEDS: ASPIRIN 81 MG EC TAB PO SCH (08:06)
[2017-11-29] MEDS: LISINOPRIL 20 MG TABLET PO SCH (08:06)
[2017-11-29] MEDS: MAGNESIUM OXIDE 400 MG TABLET PO SCH ×2 (08:06→20:52)
[2017-11-29] MEDS: ENOXAPARIN SODIUM 30 MG/0.3 ML SQ SCH (08:07)
[2017-11-29] MEDS: GABAPENTIN 300 MG CAPSULE PO SCH ×3 (08:09→20:53)
[2017-11-29] MEDS: VANCOMYCIN 1.5 GM in SODIUM CHLORIDE 0.9% 250 ML IV SCH ×2 (08:10→19:54)
[2017-11-29] MEDS: MORPHINE SULFATE 2 MG/ML 1ML SYG IVP PRN ×2 (10:59→19:38)
[2017-11-29] MEDS: ATORVASTATIN CALCIUM 20 MG TABLET PO SCH (20:52)
[2017-11-29] MEDS: SERTRALINE HCL 50 MG TABLET PO SCH (20:52)
[2017-11-29] MEDS: ZOLPIDEM TARTRATE 5 MG TAB PO SCH (22:20)
[2017-11-30] MEDS: CEFAZOLIN SODIUM 1 GM VIAL IVP SCH ×3 (03:22→20:27)
[2017-11-30 04:11] VITALS: BP 159/93
[2017-11-30 04:37] LABS: CREATININE 0.7 mg/dL (0.5-1.5); MAGNESIUM 1.4 mg/dL (1.80-2.40); POTASSIUM 3.8 mmol/L (3.5-5.1)
[2017-11-30] MEDS ORDERED: POTASSIUM CHLORIDE 10 MEQ/TAB.SA PO ONE ×2 (04:52)
[2017-11-30] MEDS: MAGNESIUM 2GM PREMIX 50ML 50 ML IV PRN (04:57)
[2017-11-30] MEDS: MAG HYDROX/AL HYDROX/SIMETH 30 ML, LIDOCAINE HCL 2% VISCOUS 30 ML, DIPHENHYDRAMINE HCL ... PO SCH ×12 (05:45→23:51)
[2017-11-30] MEDS: INSULIN HUMULIN R 100 UNIT/ML 3ML SQ SCH ×4 (06:04→20:32)
[2017-11-30] MEDS: INSULIN HUMULIN 70/30 100 UNIT/ML 3ML SQ SCH ×2 (06:06→17:32)
[2017-11-30 07:00] VITALS: BP 157/87
[2017-11-30] MEDS: METOPROLOL TARTRATE 25 MG TAB PO SCH ×2 (09:22→20:32)
[2017-11-30] MEDS: VANCOMYCIN 1.5 GM in SODIUM CHLORIDE 0.9% 250 ML IV SCH ×2 (09:22→20:27)
[2017-11-30] MEDS: MAGNESIUM OXIDE 400 MG TABLET PO SCH ×2 (09:22→20:33)
[2017-11-30] MEDS: ASPIRIN 81 MG EC TAB PO SCH (09:22)
[2017-11-30] MEDS: GABAPENTIN 300 MG CAPSULE PO SCH ×3 (09:22→20:28)
[2017-11-30] MEDS: LISINOPRIL 20 MG TABLET PO SCH (09:22)
[2017-11-30] MEDS: ENOXAPARIN SODIUM 30 MG/0.3 ML SQ SCH (09:24)
[2017-11-30 11:00] VITALS: BP 151/72
[2017-11-30] MEDS: ACETAMINOPHEN 325 MG TAB PO PRN (13:23)
[2017-11-30 16:00] VITALS: BP 142/74
[2017-11-30 20:02] VITALS: BP 163/99
[2017-11-30] MEDS: ZOLPIDEM TARTRATE 5 MG TAB PO SCH (20:27)
[2017-11-30] MEDS: ATORVASTATIN CALCIUM 20 MG TABLET PO SCH (20:28)
[2017-11-30] MEDS: SERTRALINE HCL 50 MG TABLET PO SCH (20:28)
[2017-11-30] MEDS: MORPHINE SULFATE 2 MG/ML 1ML SYG IVP PRN (20:33)
[2017-11-30 23:31] VITALS: BP 149/84
[2017-12-01 03:30] VITALS: BP 165/84
[2017-12-01] MEDS: CEFAZOLIN SODIUM 1 GM VIAL IVP SCH ×3 (04:35→20:14)
[2017-12-01] MEDS: MAG HYDROX/AL HYDROX/SIMETH 30 ML, LIDOCAINE HCL 2% VISCOUS 30 ML, DIPHENHYDRAMINE HCL ... PO SCH ×3 (05:45)
[2017-12-01] MEDS: INSULIN HUMULIN R 100 UNIT/ML 3ML SQ SCH ×4 (06:17→21:27)
[2017-12-01] MEDS: INSULIN HUMULIN 70/30 100 UNIT/ML 3ML SQ SCH ×2 (06:44→16:34)
[2017-12-01] MEDS ORDERED: PHARMACY COMMUNICATION MISC SCH (08:00)
[2017-12-01 08:02] VITALS: BP 156/89
[2017-12-01] MEDS: MAGNESIUM OXIDE 400 MG TABLET PO SCH ×2 (08:42→20:17)
[2017-12-01] MEDS: GABAPENTIN 300 MG CAPSULE PO SCH ×3 (08:42→20:16)
[2017-12-01] MEDS: LISINOPRIL 20 MG TABLET PO SCH (08:43)
[2017-12-01] MEDS: METOPROLOL TARTRATE 25 MG TAB PO SCH ×2 (08:43→20:17)
[2017-12-01] MEDS: ASPIRIN 81 MG EC TAB PO SCH (08:43)
[2017-12-01] MEDS: ENOXAPARIN SODIUM 30 MG/0.3 ML SQ SCH (08:44)
[2017-12-01] MEDS: MORPHINE SULFATE 2 MG/ML 1ML SYG IVP PRN ×2 (08:44→21:36)
[2017-12-01] MEDS ORDERED: VANCOMYCIN 1.75 GM in SODIUM CHLORIDE 0.9% 250 ML IV SCH (10:15)
[2017-12-01] MEDS: [UNRECOGNIZED DRUG - OTHER] IV SCH ×2 (10:38→20:19)
[2017-12-01] MEDS: VANCOMYCIN IV SCH ×2 (10:38→20:19)
[2017-12-01 10:50] LABS: INR 1.13 (0.85-1.15); PROTHROMBIN TIME 11.8 SEC (9.6-11.6)
[2017-12-01 11:41] VITALS: BP 142/79
[2017-12-01 16:00] VITALS: BP 138/77
[2017-12-01 20:13] VITALS: BP 158/79
[2017-12-01] MEDS: ATORVASTATIN CALCIUM 20 MG TABLET PO SCH (20:16)
[2017-12-01] MEDS: ZOLPIDEM TARTRATE 5 MG TAB PO SCH (20:16)
[2017-12-01] MEDS: SERTRALINE HCL 50 MG TABLET PO SCH (20:17)
[2017-12-02] VITALS (7 sets, daily range): BP systolic 132–154; BP diastolic 73–91
[2017-12-02] MEDS: CEFAZOLIN SODIUM 1 GM VIAL IVP SCH ×3 (03:34→20:50)
[2017-12-02] MEDS: INSULIN HUMULIN R 100 UNIT/ML 3ML SQ SCH ×4 (05:45→22:22)
[2017-12-02] MEDS: INSULIN HUMULIN 70/30 100 UNIT/ML 3ML SQ SCH ×2 (05:50→17:34)
[2017-12-02 06:21] LABS: INR 1.09 (0.85-1.15); PARTIAL THROMBOPLASTIN TIME 29.1 SEC (26.3-35.5); PROTHROMBIN TIME 11.4 SEC (9.6-11.6)
[2017-12-02] MEDS: GABAPENTIN 300 MG CAPSULE PO SCH ×3 (09:06→22:26)
[2017-12-02] MEDS: MAGNESIUM OXIDE 400 MG TABLET PO SCH ×2 (09:06→22:16)
[2017-12-02] MEDS: LISINOPRIL 20 MG TABLET PO SCH (09:07)
[2017-12-02] MEDS: ASPIRIN 81 MG EC TAB PO SCH (09:07)
[2017-12-02] MEDS: METOPROLOL TARTRATE 25 MG TAB PO SCH ×2 (09:07→22:17)
[2017-12-02] MEDS: ENOXAPARIN SODIUM 30 MG/0.3 ML SQ SCH (09:08)
[2017-12-02] MEDS: VANCOMYCIN IV SCH ×2 (09:09→22:26)
[2017-12-02] MEDS: [UNRECOGNIZED DRUG - OTHER] IV SCH ×2 (09:09→22:26)
[2017-12-02] MEDS: MORPHINE SULFATE 2 MG/ML 1ML SYG IVP PRN ×3 (10:54→20:50)
[2017-12-02] MEDS: ATORVASTATIN CALCIUM 20 MG TABLET PO SCH (22:16)
[2017-12-02] MEDS: SERTRALINE HCL 50 MG TABLET PO SCH (22:17)
[2017-12-02] MEDS: ZOLPIDEM TARTRATE 5 MG TAB PO SCH (22:17)
[2017-12-03 03:31] VITALS: BP 153/75
[2017-12-03] MEDS: CEFAZOLIN SODIUM 1 GM VIAL IVP SCH ×3 (04:17→22:04)
[2017-12-03] MEDS: INSULIN HUMULIN R 100 UNIT/ML 3ML SQ SCH ×4 (06:21→22:11)
[2017-12-03 07:00] VITALS: BP 160/86
[2017-12-03] MEDS: INSULIN HUMULIN 70/30 100 UNIT/ML 3ML SQ SCH ×2 (07:14→16:53)
[2017-12-03] MEDS: LISINOPRIL 20 MG TABLET PO SCH (08:20)
[2017-12-03] MEDS: GABAPENTIN 300 MG CAPSULE PO SCH ×3 (08:20→22:11)
[2017-12-03] MEDS: MAGNESIUM OXIDE 400 MG TABLET PO SCH ×2 (08:20→22:05)
[2017-12-03] MEDS: METOPROLOL TARTRATE 25 MG TAB PO SCH ×2 (08:20→22:05)
[2017-12-03] MEDS: ASPIRIN 81 MG EC TAB PO SCH (08:21)
[2017-12-03] MEDS: [UNRECOGNIZED DRUG - OTHER] IV SCH ×2 (08:22→22:11)
[2017-12-03] MEDS: VANCOMYCIN IV SCH ×2 (08:22→22:11)
[2017-12-03] MEDS: ENOXAPARIN SODIUM 30 MG/0.3 ML SQ SCH (08:22)
[2017-12-03 11:00] VITALS: BP 142/75
[2017-12-03 16:00] VITALS: BP 150/78
[2017-12-03 19:00] VITALS: BP 151/67
[2017-12-03] MEDS: MORPHINE SULFATE 2 MG/ML 1ML SYG IVP PRN (22:04)
[2017-12-03] MEDS: ZOLPIDEM TARTRATE 5 MG TAB PO SCH (22:05)
[2017-12-03] MEDS: SERTRALINE HCL 50 MG TABLET PO SCH (22:05)
[2017-12-03] MEDS: ATORVASTATIN CALCIUM 20 MG TABLET PO SCH (22:05)
[2017-12-03 23:43] VITALS: BP 140/76
[2017-12-04 03:45] VITALS: BP 151/80
[2017-12-04] MEDS: CEFAZOLIN SODIUM 1 GM VIAL IVP SCH ×2 (04:28→11:49)
[2017-12-04] MEDS: INSULIN HUMULIN R 100 UNIT/ML 3ML SQ SCH ×3 (06:31→16:30)
[2017-12-04] MEDS: INSULIN HUMULIN 70/30 100 UNIT/ML 3ML SQ SCH ×2 (06:34→17:00)
[2017-12-04 07:00] VITALS: BP 140/78
[2017-12-04] MEDS: METOPROLOL TARTRATE 25 MG TAB PO SCH (08:34)
[2017-12-04] MEDS: ASPIRIN 81 MG EC TAB PO SCH (08:34)
[2017-12-04] MEDS: GABAPENTIN 300 MG CAPSULE PO SCH ×2 (08:35→13:40)
[2017-12-04] MEDS: LISINOPRIL 20 MG TABLET PO SCH (08:35)
[2017-12-04] MEDS: MAGNESIUM OXIDE 400 MG TABLET PO SCH (08:35)
[2017-12-04] MEDS: ENOXAPARIN SODIUM 30 MG/0.3 ML SQ SCH (08:36)
[2017-12-04] MEDS: VANCOMYCIN IV SCH (09:41)
[2017-12-04] MEDS: [UNRECOGNIZED DRUG - OTHER] IV SCH (09:41)
[2017-12-04] MEDS: MORPHINE SULFATE 2 MG/ML 1ML SYG IVP PRN ×3 (09:43→18:05)
[2017-12-04 16:20] VITALS: BP 141/75
[2017-12-04] MEDS ORDERED: VANC1.5P12 IV (17:54)
[2017-12-04] MEDS ORDERED: CEFA1SYR IV (17:56)
== END 2017-12-04 18:46 | DRG 871 ==
LOC: EDH 13:03 → EDHIP 17:50 → 3CH 11-23 20:38 → 2CH 11-23 21:08 → 2AH 11-25 16:26
PROVIDERS: ADMIT Internal Medicine; ATTEND Internal Medicine
PROC: 02HV33Z Insertion of Infusion Device into Superior Vena Cava, Percutaneous Approach (ICD-10-PCS; principal; 2017-12-02)
DX: A41.9 Sepsis, unspecified organism (principal); E43 Unspecified severe protein-calorie malnutrition; E11.40 Type 2 diabetes mellitus with diabetic neuropathy, unspecified; L02.416 Cutaneous abscess of left lower limb; L03.116 Cellulitis of left lower limb; E87.1 Hypo-osmolality and hyponatremia; N39.0 Urinary tract infection, site not specified; E66.9 Obesity, unspecified; E78.5 Hyperlipidemia, unspecified; E83.42 Hypomagnesemia; F17.200 Nicotine dependence, unspecified, uncomplicated; I10 Essential (primary) hypertension; I48.91 Unspecified atrial fibrillation; J45.909 Unspecified asthma, uncomplicated; F41.9 Anxiety disorder, unspecified; Z68.37 Body mass index [BMI] 37.0-37.9, adult; Z91.030 Bee allergy status; Z91.013 Allergy to seafood; Z88.0 Allergy status to penicillin; Z88.8 Allergy status to other drugs, medicaments and biological substances; Z74.01 Bed confinement status; Z79.82 Long term (current) use of aspirin; Z86.14 Personal history of Methicillin resistant Staphylococcus aureus infection; Z86.73 Personal history of transient ischemic attack (TIA), and cerebral infarction without residual deficits; Z99.3 Dependence on wheelchair; Z90.711 Acquired absence of uterus with remaining cervical stump
CPT/HCPCS: 36415; 71045; 73723; 78582; 80048; 80053; 80202; 81001; 82550; 82553; 82948; 83605; 83735; 83874; 84132; 84484; 85007; 85025; 85027; 85060; 85378; 85610; 85730; 87040; 87070; 87076; 87088; 88313; 93005; 93306; 93971; 97039; A4218; A9540; A9558; A9577; J0690; J0696; J1650; J1815; J3370; J3475; J3480; J3490; J7030; J7040

== ENCOUNTER 2018-10-22 08:23 | Emergency (ER) | payer OTHER ==
[~2018-10-22 08:23] MED LIST changes: +CEFA1SYR IV; +VANC1.5P12 IV
[2018-10-22 09:58] LABS: POTASSIUM 4.3 mmol/L (3.5-5.1)
[2018-10-22 10:13] LABS: EOSINOPHILS % (AUTO) 5.8 % (0.0-8.0)
[2018-10-22 10:20] LABS: BASOPHILS % (AUTO) 0.7 % (0.0-5.0); HEMATOCRIT 34.7 % (36-48); LYMPHOCYTES % (AUTO) 22.8 % (21.0-51.0); MEAN CORPUSCULAR HEMOGLOBIN 29.2 pg (27.0-33.0); MEAN CORPUSCULAR HGB CONC 33.9 g/dL (32.0-36.0); MEAN CORPUSCULAR VOLUME 86.2 fL (79-99); MONOCYTES % (AUTO) 7.5 % (3.0-13.0); NEUTROPHILS % (AUTO) 63.2 % (40.0-77.0); PLATELET COUNT (AUTO) 272 K/uL (130-400); RED BLOOD CELL COUNT(AUTO) 4.03 MIL/uL (4.00-5.50); RED CELL DISTRIBUTION WIDTH 14.1 % (11.0-15.5); WHITE BLOOD COUNT (AUTO) 7.6 K/uL (4.8-10.8)
[2018-10-22 11:08] LABS: PLATELET MORPHOLOGY ADEQUATE
== END 2018-10-22 11:28 | disposition home or self-care (01) ==
LOC: EDH 08:23
DX: S02.2XXA Fracture of nasal bones, initial encounter for closed fracture (principal); S90.31XA Contusion of right foot, initial encounter; R04.0 Epistaxis; E11.9 Type 2 diabetes mellitus without complications; Z79.4 Long term (current) use of insulin; E78.5 Hyperlipidemia, unspecified; I10 Essential (primary) hypertension; Z90.49 Acquired absence of other specified parts of digestive tract; Z90.710 Acquired absence of both cervix and uterus; Z87.891 Personal history of nicotine dependence; Z86.73 Personal history of transient ischemic attack (TIA), and cerebral infarction without residual deficits; Z91.81 History of falling; Z91.041 Radiographic dye allergy status; Z88.0 Allergy status to penicillin; Z91.013 Allergy to seafood; W06.XXXA Fall from bed, initial encounter; Y93.89 Activity, other specified; Y92.89 Other specified places as the place of occurrence of the external cause; Y99.8 Other external cause status
CPT/HCPCS: 36415; 70450; 73630; 80048; 85025

== ENCOUNTER 2019-08-06 09:03 | Inpatient (IN) | payer OTHER ==
[~2019-08-06] VITALS: Ht 91.4 cm; Wt 86.7 kg
[2019-08-06] VITALS (18 sets, daily range): BP systolic 119–167; BP diastolic 59–104
[~2019-08-06 09:03] MED LIST changes: -CEFA1SYR IV; +CLIN300C9 PO; -DICL50TA9 PO; +HYDR25TA PO; +METF-526 PO; +METO50TA18 PO; +TRAZ150T79 PO; -VANC1.5P12 IV; +ZALE10CA26 PO; -ZOLP10TA2 PO
[2019-08-06 09:23] LABS: BASOPHILS % (AUTO) 0.4 % (0.0-5.0); LYMPHOCYTES % (AUTO) 10.7 % (21.0-51.0); MEAN CORPUSCULAR HEMOGLOBIN 29.1 pg (27.0-33.0); MEAN CORPUSCULAR HGB CONC 31.8 g/dL (32.0-36.0); MEAN CORPUSCULAR VOLUME 91.5 fL (79-99); MONOCYTES % (AUTO) 3.8 % (3.0-13.0); NEUTROPHILS % (AUTO) 85.1 % (40.0-77.0); PLATELET COUNT (AUTO) 338 K/uL (130-400); RED BLOOD CELL COUNT(AUTO) 5.03 MIL/uL (4.00-5.50); RED CELL DISTRIBUTION WIDTH 13.8 % (11.0-15.5); WHITE BLOOD COUNT (AUTO) 11.6 K/uL (4.8-10.8)
[2019-08-06 09:38] LABS: INR 1.01 (0.85-1.15); PARTIAL THROMBOPLASTIN TIME 25.6 SEC (26.3-35.5); PROTHROMBIN TIME 10.6 SEC (9.6-11.6)
[2019-08-06] MEDS ORDERED: INSULIN HUMULIN R 100 UNIT/ML 3ML ONE (09:40)
[2019-08-06 09:43] LABS: ALBUMIN 4.2 g/dL (3.5-5.0); BILIRUBIN,TOTAL 0.6 mg/dL (0.2-1.0); CREATININE 1.7 mg/dL (0.5-1.5); POTASSIUM 5.1 mmol/L (3.5-5.1); TOTAL PROTEIN, SERUM 8.4 g/dL (6.0-8.3)
[2019-08-06 10:19] LABS: ABG HCO3 6.3 mmol/L (21.0-28.0); ABG OXYGEN SATURATION 97.1 % (95.0-99.0); ABG PCO2 20 mmHg (32-45)
[2019-08-06] MEDS ORDERED: SODIUM CHLORIDE 0.9% 100 ML IV ONE (10:21)
[2019-08-06] MEDS ORDERED: SODIUM BICARB 50MEQ 50ML VIAL ONE (10:28)
[2019-08-06 10:29] LABS: APPEARANCE,URINE Clear (CLEAR); BILIRUBIN,URINE Negative (NEGATIVE); COLOR,URINE Yellow (YELLOW); GLUCOSE, URINE (UA) >=1000 mg/dL (NEGATIVE); KETONES,URINE >=160 mg/dL (NEGATIVE); LEUKOCYTE ESTERASE ,URINE Negative (NEGATIVE); NITRATE,URINE Negative (NEGATIVE); OCCULT BLOOD,URINE Trace (NEGATIVE); PROTEIN,URINE POS 1+ mg/dL (NEGATIVE); UROBILINOGEN,URINE 0.2 mg/dL (0.2-1.0)
[2019-08-06] MEDS ORDERED: ONDANSETRON HCL 4 MG/2 ML VIAL ONE (10:38)
[2019-08-06 10:56] LABS: SQUAMOUS EPITHELIAL CELL,UR Few /HPF (0-2)
[2019-08-06 10:57] LABS: BACTERIA,URINE Few /HPF (None Seen); RBC,URINE None Seen /HPF (0-1); WBC,URINE 0-1 /HPF (0-1)
--- NOTE | 2019-08-06 12:35 | NUR ---
PATIENT ARRIVED TO 217 FROM ER. CONNECTED TO [facility]SM[facility]. INSULIN DRIP AT 10ML/HR. DR PAGAN IN TO SEE PATIENT.
--- NOTE | 2019-08-06 12:45 | NUR ---
PATIENT EXPRESSED WANTING TO TO DR PAGAN. STATING THAT SHE STOPPED TAKING HER MEDICATIONS ON PURPOSE. 1:1 ORDERED. CRUISE COUNSELOR AND CHARGE NURSE INFORMED.
[2019-08-06 13:27] LABS: CREATININE 1.4 mg/dL (0.5-1.5); POTASSIUM 3.7 mmol/L (3.5-5.1)
[2019-08-06] MEDS ORDERED: INSULIN REGULAR, HUMAN 3ML 100 UNIT in SODIUM CHLORIDE 0.9% 99 ML IV PRN ×2 (13:30)
[2019-08-06] MEDS ORDERED: POTASSIUM CHLORIDE 20MEQ/100ML 100 ML IV PRN (13:30)
[2019-08-06] MEDS ORDERED: LIDOCAINE HCL-MPF 1% 2ML VIAL IV PRN (13:30)
[2019-08-06] MEDS ORDERED: POTASSIUM CHLORIDE 10% ELIXIR 20 MEQ/15 ML UDCUP PO PRN (13:30)
[2019-08-06] MEDS: LACTATED RINGERS 1000ML 1,000 ML IV SCH ×2 (14:00→20:40)
[2019-08-06] MEDS: GABAPENTIN 100 MG CAPSULE PO SCH ×2 (15:25→21:29)
[2019-08-06] MEDS: POTASSIUM CHLORIDE 20 MEQ ERTAB PO PRN ×2 (15:25→21:28)
[2019-08-06] MEDS: DEXTROSE 5 %-0.45 % NACL 1,000 ML IV PRN ×2 (15:26→21:48)
--- NOTE | 2019-08-06 15:45 | NUR ---
PATIENT'S IN TO VISIT. STATES HE WILL BRING HER HOME MEDICATIONS TOMORROW
[2019-08-06 20:47] LABS: CREATININE 1.3 mg/dL (0.5-1.5); MAGNESIUM 1.3 mg/dL (1.80-2.40); POTASSIUM 3.8 mmol/L (3.5-5.1)
[2019-08-06] MEDS ORDERED: MAGNESIUM 2GM PREMIX 50ML 50 ML IV ONE (21:26)
[2019-08-06] MEDS ORDERED: DIPHENHYDRAMINE HCL 25 MG CAPSULE ONE (21:27)
[2019-08-06] MEDS ORDERED: MAGNESIUM 2GM PREMIX 50ML 50 ML IV PRN (21:30)
[2019-08-07] VITALS (12 sets, daily range): BP systolic 131–168; BP diastolic 54–113
[2019-08-07] MEDS: DIPHENHYDRAMINE HCL 25 MG CAPSULE PO PRN ×2 (02:43→09:24)
[2019-08-07] MEDS: DEXTROSE 5 %-0.45 % NACL 1,000 ML IV PRN ×2 (02:43→10:07)
[2019-08-07] MEDS: LACTATED RINGERS 1000ML 1,000 ML IV SCH ×2 (03:20→10:00)
[2019-08-07 03:22] LABS: CREATININE 1.2 mg/dL (0.5-1.5); MAGNESIUM 1.7 mg/dL (1.80-2.40); POTASSIUM 3.8 mmol/L (3.5-5.1)
[2019-08-07] MEDS: POTASSIUM CHLORIDE 20 MEQ ERTAB PO PRN ×4 (04:42→09:25)
[2019-08-07 07:12] LABS: MAGNESIUM 2.4 mg/dL (1.80-2.40); POTASSIUM 3.3 mmol/L (3.5-5.1)
[2019-08-07] MEDS: GABAPENTIN 100 MG CAPSULE PO SCH ×2 (08:41→22:11)
[2019-08-07] MEDS: ACETAMINOPHEN 325 MG TAB PO PRN (09:25)
[2019-08-07 12:18] LABS: CREATININE 0.9 mg/dL (0.5-1.5); POTASSIUM 4.4 mmol/L (3.5-5.1)
--- NOTE | 2019-08-07 12:23 | NUR ---
PATIENT'S GAP WAS 10 THIS MORNING, NOW 9. WILL GIVE LANTUS AND TURN OFF DRIP IN [address] PAGAN ORDERED TO TRANSFER TO MEDICAL WITH 1:1 ONCE THE DRIP IS OFF.
[2019-08-07] MEDS: INSULIN GLARGINE 100 UNITS/ML 10 ML VIAL SQ SCH ×2 (12:27→22:09)
[2019-08-07] MEDS ORDERED: HYDR-3421 PO (12:57)
--- NOTE | 2019-08-07 13:05 | NUR ---
PATIENT YELLING AT HER . I ASKED HER TO STOP YELLING THERE ARE OTHER PATIENTS IN THE ICU. SHE CONTINUED YELLING AND SAID SHE WILL START "THIS PROCESS OVER WHEN SHE GETS OUT OF HERE" WHEN ASKED WHAT LOY SAID "STOPPING MY MEDICATIONS! I AM TIRED OF LIVING LIKE THIS. GET OUT!" I LEFT THE ROOM.
--- NOTE | 2019-08-07 13:15 | NUR ---
SECURITY RELEASED PATIENT'S BELONGINGS (PURSE, WALLET, CLOTHES, AND RINGS) TO THE PATIENT'S . PATIENT'S INSTRUCTED THAT SHE CANNOT HAVE ANYTHING IN HER ROOM. VERBALIZED UNDERSTANDING.
--- NOTE | 2019-08-07 13:25 | NUR ---
VERIFIED PATIENT'S HAD ALL BELONGINGS HE LEFT. HE HAD GIVEN HER RINGS BACK. RINGS TAKEN FROM PATIENT AND GIVEN BACK TO PATIENT'S . PATIENT EDUCATED IT IS FOR HER SAFETY. PATIENT BECAME VERY, HITTING BED WITH CLOSED FISTS, AND TOLD ME TO LEAVE HER ROOM. 1:1 SITTER REMAINS AT BEDSIDE. CHARGE NURSE IS AWARE.
--- NOTE | 2019-08-07 15:06 | NUR ---
D/C PLAN CM spoke to pt regarding d/c planning. Pt lives with spouse. Denies having any current home health or provider services. States she has hospital bed with [facility]ka and w/yolanda. Reports spouse can assist in care as needed. Pt states she does have glucometer at home but does not monitor blood sugars. Pt is pending psych consultation and medical clearance for possible placement in inpatient psych facility. CM to f/u. Addendum: 08/07/19 at 1509 by ROLANDO MERAZ CM Amended: Links added.
[2019-08-07] MEDS ORDERED: FLU VACC QS2019-20 36MOS UP/PF 60 MCG/0.5 ML ML IM SCH (16:00)
[2019-08-07] MEDS ORDERED: PNEUMOCOCCAL VACCINE POLYVALENT 0.5 ML/VIAL [PPV] IM SCH (16:00)
[2019-08-07] MEDS: INSULIN HUMULIN R 100 UNIT/ML 3ML SQ SCH ×2 (16:35→22:10)
--- NOTE | 2019-08-07 16:47 | NUR ---
REPORT GIVEN TO GENESIS ON 3RD FLOOR. INFORMED OF PENDING PSYCH CONSULT AND VACCINES. ALL QUESTIONS ANSWERED. PATIENT MOVED TO 311 IN THE BED WITH 2 PCP AND IN STABLE CONDITION.
[2019-08-08] VITALS (7 sets, daily range): BP systolic 112–149; BP diastolic 50–89
[2019-08-08] MEDS: LORAZEPAM 1 MG TABLET PO PRN (04:32)
[2019-08-08] MEDS: INSULIN HUMULIN R 100 UNIT/ML 3ML SQ SCH ×4 (06:58→20:42)
[2019-08-08] MEDS: GABAPENTIN 100 MG CAPSULE PO SCH ×2 (11:54→20:34)
--- NOTE | 2019-08-08 14:51 | NUR ---
No visit from Dr. Whitney yet. Called to confirm he is aware; stated he had not been notified of consult. Gave him pt info; stated he will see hector.
[2019-08-08] MEDS ORDERED: TRAZODONE HCL 50 MG TAB PO PRN (19:00)
--- NOTE | 2019-08-08 19:15 | NUR ---
REPORT RECEIVED REPORT FROM AM SHIFT NURSE, KANCHAN. DR TYSON AND DR MARTINEZ IN MAKING ROUNDS. DR TYSON VERBALIZES THAT PT IS MEDICALLY CLEARED AND NEEDS TO BE TRANSFERRED TO [facility] IN PT. FURTHER STATED THAT DR MARTINEZ DID NOT REMOVE PT FROM SUICIDAL WATCH.
[2019-08-08] MEDS: HYDROXYZINE HCL 10 MG TABLET PO PRN (20:34)
--- NOTE | 2019-08-08 20:34 | NUR ---
MEDS SHIFT ASSESSMENT DONE, PLEASE REFER TO CHART. DUE MEDS ADMINISTERED, TOLERATED WELL. KEPT RESTED AND COMFORTABLE. SITTER AT BEDSIDE. WILL MONITOR CLOSELY. Addendum: 08/09/19 at 0142 by CORA BARRIENTOS RN RN Amended: Links added.
[2019-08-08] MEDS: INSULIN GLARGINE 100 UNITS/ML 10 ML VIAL SQ SCH (20:42)
[2019-08-09] MEDS: LORAZEPAM 1 MG TABLET PO PRN (00:15)
--- NOTE | 2019-08-09 00:15 | NUR ---
MEDS PT IS COMPLAINING OF ITCHING ON PIV SITE TO RT FOREARM. PT REQUESTED TO REMOVE PIV. DISCONTINUED SITE WITH CATHETER INTACT. PT UNABLE TO SUSTAIN SLEEP. MEDICATED WITH ATIVAN PO AND ENCOURAGED TO RELAX AND REST. SITTER AT BEDSIDE. WILL MONITOR CLOSELY.
[2019-08-09] MEDS: HYDROXYZINE HCL 10 MG TABLET PO PRN ×3 (02:30→21:15)
--- NOTE | 2019-08-09 02:30 | NUR ---
ITCHING PT AWAKENS AND CLAIMS OF GENERALIZED ITCHING. NO NOTED REDNESS NOR RASH. MEDICATED WITH ATARAX PO. KEPT RESTED AND COMFORTABLE IN BED. SITTER AT BEDSIDE. WILL MONITOR CLOSELY.
--- NOTE | 2019-08-09 03:52 | NUR ---
UPSET PT COMPLAINTS THAT BOTTOM STOP ATTACHER HAVE NOT GIVEN HER PILLS. EXPLAINED TO PT THAT ALL MEDS ORDERED BY WAS ALREADY ADMINISTERED. PT GOT UPSET AND THROW HER GOWN AND WATER ACROSS THE ROOM. PT REFUSED TO BATHE AT THIS TIME. TRIED TO CALM PT DOWN BUT KICKED BOTTOM STOP ATTACHER OUT OF ROOM. SITTER AT BEDSIDE. Addendum: 08/09/19 at 0354 by CORA BARRIENTOS RN RN Amended: Links added.
[2019-08-09 04:00] VITALS: BP 119/69
[2019-08-09] MEDS: INSULIN HUMULIN R 100 UNIT/ML 3ML SQ SCH ×4 (07:06→21:18)
--- NOTE | 2019-08-09 07:06 | NUR ---
INSULIN PT IS RESTING AND IS CALM AT THIS TIME. DUE INSULIN DOSE ADMINISTERED, TOLERATED WELL. ENDORSING TO AM SHIFT RN, KANCHAN, FOR MORE CARE AND MANAGEMENT.
[2019-08-09 08:00] VITALS: BP 138/76
[2019-08-09] MEDS: GABAPENTIN 100 MG CAPSULE PO SCH ×2 (08:06→21:15)
[2019-08-09] MEDS: ACETAMINOPHEN 325 MG TAB PO PRN (11:32)
[2019-08-09 11:36] VITALS: BP 134/87
--- NOTE | 2019-08-09 12:09 | NUR ---
RDSCREEN Inaccurate Ht entered. Ht 5'3" as per Pt. RN notified. Pt admitted for DKA. Pt with major depression, suicidal ideation, 1:1 observation. Psych consulted as per EMR. Upon visit, Pt reports eating well, no GI distress, PO intake at 100%. Pt LBM 08/05/19. Pt reports Lack of bowel and bladder control with desire of bedside commode. Pt allergies: Shellfish, Bee Pollen. Pt monitored labs: BG 184, BUN 5. Recommend to continue current diet order. RD to continue to monitor. Please notify RD as additional nutrition concerns arise. Thank you. Addendum: 08/09/19 at [address] Amended: Links added.
--- NOTE | 2019-08-09 15:23 | NUR ---
SCREENER INPUT MET W TROPICAL SCREENER, AND WAS TOLD THAT PT DOES NOT MEET IP CRITERIA- SCREENER WILL ATTEMPT TO GET OUTPATIENT SERVICES. PT VERBALIZING WANTS TO GO HOME. AT BEDSIDE, WILL PROVIDE TRANSPORT. PT CARRIE DONE THIS MORNING. UPDATED PORFIRIO HEMPHILL; PT CAN GO TO [facility]D WITH PT NOTES FOR SET UP OF HH
[2019-08-09 15:32] VITALS: BP 156/73
[2019-08-09 20:00] VITALS: BP 142/75
--- NOTE | 2019-08-09 20:10 | NUR ---
MD DR TYSON IN TO SEE PT. NEW ORDERS GIVEN, PLEASE REFER TO CPOE.
[2019-08-09] MEDS ORDERED: INSULIN GLARGINE 100 UNITS/ML 10 ML VIAL SQ SCH (21:00)
[2019-08-09] MEDS ORDERED: ZOLPIDEM TARTRATE 5 MG TAB PO SCH (21:00)
[2019-08-09] MEDS: INSULIN GLARGINE 100 UNITS/ML 10 ML VIAL SQ SCH (21:19)
--- NOTE | 2019-08-09 21:20 | NUR ---
MEDS SHIFT ASSESSMENT DONE, PLEASE REFER TO CHART. DUE MEDS ADMINISTERED, TOLERATED WELL. KEPT RESTED AND COMFORTABLE IN BED. ICE PROVIDED PER PT REQUEST. WET DIAPER CHANGED AND RE-POSITIONED COMFORTABLY IN BED. KEPT COMFORTABLE IN BED WITH HOB ELEVATED. CALL LIGHT WITHIN REACH. WILL MONITOR PT. Addendum: 08/09/19 at 2238 by CORA BARRIENTOS RN RN Amended: Links added.
[2019-08-09] MEDS: FLUTICASONE PROPIONATE 50MCG/SPRAY 16 GM BOTTLE EN SCH (21:55)
[2019-08-10] VITALS: BP 141/72
--- NOTE | 2019-08-10 01:54 | NUR ---
ROUNDS PT RESTING WELL, FAIRLY ASLEEP. NOTED OCCASIONAL COUGHING BUT NOT IN RESPIRATORY DISTRESS. KEPT RESTED AND COMFORTABLE. CALL LIGHT WITHIN REACH. WILL MONITOR PT.
[2019-08-10 04:00] VITALS: BP 136/90
[2019-08-10] MEDS: INSULIN HUMULIN R 100 UNIT/ML 3ML SQ SCH ×4 (05:44→21:46)
--- NOTE | 2019-08-10 05:47 | NUR ---
ROUNDS PT RESTING WELL, NO DISTRESS NOTED. NO CONCERNS VERBALIZED. KEPT COMFORTABLE. FOR MORE CARE.
[2019-08-10 08:00] VITALS: BP 142/72
[2019-08-10] MEDS: GABAPENTIN 100 MG CAPSULE PO SCH ×2 (08:20→21:35)
[2019-08-10] MEDS: ACETAMINOPHEN 325 MG TAB PO PRN (08:21)
[2019-08-10] MEDS: FLUTICASONE PROPIONATE 50MCG/SPRAY 16 GM BOTTLE EN SCH ×2 (08:21→21:36)
[2019-08-10 12:00] VITALS: BP 153/86
--- NOTE | 2019-08-10 14:18 | NUR ---
SENT INFO TO [facility] SPOKE TO PT. TROPICAL SCREENER AT BEDSIDE- STATES HE WAS THERE FOR FOLLOW UP ADVISED THE PATIENT RE HER CHOICES FOR HOME HEALTH - HAS USED [facility] IN THE PAST AMADEO RECD/SIGNED. ALSO SPECIFICALLY ASKED PT IF I COULD SEND THE TROPICAL SCREENING TO [facility] AND GOT A CONSNET FOR THAT WELL SEND PKT AT 1215- CALLED AGAIN AT 1400, WS ADVISED THEY HAD NOT RECD THE REFERRAL, RE FAXED. WAITING ON DR. TYSON FOR DC ORDERS. WILL FAX THE SCREENING IF THE STATES THEY ARE IN NETWORK. PT IN AGREEMENT.
[2019-08-10 16:00] VITALS: BP 126/74
--- NOTE | 2019-08-10 16:40 | NUR ---
BRIGHT STAR DECLINED PT, STATES PREVIOUS PATIENT , NON COMPLIANT WITH PT, CNANOT TAKE BACK ADVISED PORFIRIO HORN, WILL FOLOW UP IN AM
--- NOTE | 2019-08-10 18:37 | NUR ---
PAGED DR TYSON TO ORDER. PATIENT REQUESTS COUGH MEDICINE. WAITING METAL PAINTER BACK/
[2019-08-10 20:00] VITALS: BP 145/65
[2019-08-10] MEDS: IBUPROFEN 200 MG TAB PO PRN (20:10)
[2019-08-10] MEDS ORDERED: GUAIFENESIN-DM 200/20 MG 10 ML PO PRN (20:45)
[2019-08-10] MEDS ORDERED: ZOLPIDEM TARTRATE 5 MG TAB PO PRN (21:00)
[2019-08-10] MEDS: AZITHROMYCIN 250 MG TABLET PO SCH (21:35)
[2019-08-10] MEDS: GUAIFENESIN-CODEINE 5 ML SYRUP PO PRN (21:35)
[2019-08-10] MEDS: INSULIN GLARGINE 100 UNITS/ML 10 ML VIAL SQ SCH (21:45)
[2019-08-11] VITALS: BP 128/75
[2019-08-11] MEDS: IBUPROFEN 200 MG TAB PO PRN ×2 (03:30→12:54)
[2019-08-11 03:39] VITALS: BP 141/74
[2019-08-11] MEDS: GUAIFENESIN-CODEINE 5 ML SYRUP PO PRN ×3 (05:54→18:16)
[2019-08-11] MEDS: INSULIN HUMULIN R 100 UNIT/ML 3ML SQ SCH ×4 (07:11→21:10)
[2019-08-11 07:46] VITALS: BP 125/75
[2019-08-11] MEDS: GABAPENTIN 100 MG CAPSULE PO SCH ×2 (08:37→20:56)
[2019-08-11] MEDS: FLUTICASONE PROPIONATE 50MCG/SPRAY 16 GM BOTTLE EN SCH ×2 (08:37→20:56)
[2019-08-11 11:23] VITALS: BP 129/69
--- NOTE | 2019-08-11 11:30 | NUR ---
[facility] REFERRAL ATTEMPTED TO FIND HH IN NETWORK FOR PATIENT CALL TO INSURANCE, [facility] ON LIST, SENT REFERRAL, AWAITING CALL BACK
--- NOTE | 2019-08-11 12:21 | NUR ---
CALLED TO [facility] NOT IN NETWORK
--- NOTE | 2019-08-11 12:41 | NUR ---
CALL TO MULTIPLE HH IUSING LIST OF PROVIDERS GIVEN TO THIS CM BY THE INSURANCE, CALLS MADE TO [facility], [facility], [facility] AND [facility]. ALL DECLINED EXCEPT [facility]. WIATING TO HEAR BACK EARLIER MIL DECLINED PATIENT
[2019-08-11 16:00] VITALS: BP 123/70
--- NOTE | 2019-08-11 16:06 | NUR ---
DECLINED BY ALL HH- SPOKE TO PT AND SPOUSE AT [facility]- ADVISED HER THAT NO HH IN THE [place] TAKE HER [place] EXCHANGE EXCEPT [facility] AND THEY DECLINED TO WORK WITH HER AGAIN. ADVISED THE PT AND SPOUSE THAT THE ONLY WAY TO GET PT IS FOR PT HERSELF TO CALL THE HOME HEALTH AGENCY AND ASK VERY NICELY AND SAY SHE IS WILLING TO WORK WITH THEM, OR SHE WILL GO HOME WITH OUT HH PT STATED NOT WILLING TO ASK [facility] OR WORK WITH [facility].
[2019-08-11] MEDS: HYDROXYZINE HCL 10 MG TABLET PO PRN (18:56)
[2019-08-11 20:00] VITALS: BP 134/63
[2019-08-11] MEDS: AZITHROMYCIN 250 MG TABLET PO SCH (20:56)
[2019-08-11] MEDS: INSULIN GLARGINE 100 UNITS/ML 10 ML VIAL SQ SCH (21:04)
[2019-08-12] VITALS: BP 140/67
[2019-08-12 04:00] VITALS: BP 124/70
[2019-08-12] MEDS: IBUPROFEN 200 MG TAB PO PRN (04:20)
[2019-08-12] MEDS: GUAIFENESIN-CODEINE 5 ML SYRUP PO PRN (04:22)
[2019-08-12] MEDS: INSULIN HUMULIN R 100 UNIT/ML 3ML SQ SCH ×3 (06:54→17:28)
[2019-08-12 07:00] VITALS: BP 125/74
[2019-08-12] MEDS: GABAPENTIN 100 MG CAPSULE PO SCH (09:18)
[2019-08-12] MEDS: FLUTICASONE PROPIONATE 50MCG/SPRAY 16 GM BOTTLE EN SCH (09:19)
[2019-08-12] MEDS: HYDROXYZINE HCL 10 MG TABLET PO PRN (10:53)
[2019-08-12 11:00] VITALS: BP 137/67
--- NOTE | 2019-08-12 16:00 | NUR ---
DISCUSSED TRANSPORT HOME W PT AND SPOUSE ADVISED PT THAT THERE WAS AN ORDER FOR DISCHARGE. PT VERY HAPPY TO BE GOING HOME, ADVISED HER THAT THIS COULD CALL TO GET AN AUTH FOR EMS TRANSPORT BUT SHE IS NOTBY DEFINITION BED BOUND AND HAS BEEN SITTING IN THE CHAIR YESTERDAY MUCH OF THE DAY- MIGHT END UP GETTING A BILL LATER. ASKED PT HOW SHE GETS TO AND FROM APPTS ETC STATES THAT HER NEIGHBORS HELP HER IN / OUT OF VEHICLE. THEY HAVE A BIG TRUCK WITH A WHEELCHAIR LIFT CALL TO SPOUSE , WITNESSED BY ENEDINA HOLT RN, ADVISED PT'S SPOUSE AGAIN FOR DISCHARGE PLANS, NO HH, PT UNWILLING TO REQUEST LAST HH TO TAKE HER- VERBALIZED UNDERSTANDING. ADVISEDSPOUE THAT SOME INSURANCES WILL ONLY PAY FOR EMS IF PT IS' BEDBOUND AND PT IS NOT.. WAS UP TO CHAIR -CAN TRY BUT THERE IS NO GUARANTEE THAT PT WILL NOT GET A BILL. SPOUSE STATES NO, THEY WOULD MANAGE TO TAKE PT HOME AND ASK AHEAD FOR NEIGHBORS HELP AT THE END OF THE DAY .
--- NOTE | 2019-08-12 17:18 | NUR ---
WENT TO DISCHARGE PT. AND HAD NO RX. FOR EVELYNE, PT. BECAME VERY UPSET, THREW PURSE ON FLOOR AND STARTED SCREAMING SHE WAS NOT LEAVING AND TO GET DR. TYSON ON PHONE NOW. SCREAMING AT NURSE AND , ARMS CROSSED AND HAS AN ANGRY LOOK ON HER.
--- NOTE | 2019-08-12 17:32 | NUR ---
REFUSED INSULIN, STATES SHE IS NOT MOVING . PATIENT SCHEDULING MANAGER NOTIFIED. PATIENT SCHEDULING MANAGER HERE AND APPARENTLY DR. TYSON HAD TALKED TO HIM AND RX. FOR EVELYNE AND OLIVIA WERE GOING TO BE CALLED IN TO PHARMACY. HAS NOW ACCEPTED HER INSULIN AND IS READY TO GO.
--- NOTE | 2019-08-12 18:00 | NUR ---
DISCHARGED NOW USING TEACH BACK. SPOUSE SIGNED DISCHARGE. RX TO BE PICKED UP AT PHARMACY AND IS TO CONTINUE ALL HOME MEDS BEFORE. APPT, WITH [place] [facility] FOR08/26/19 AT1PM
== END 2019-08-12 17:50 | disposition home or self-care (01) | DRG 420 ==
LOC: EDH 09:03 → EDHIP 11:10 → 2CH 12:52 → 3BH 08-07 16:43
PROVIDERS: ADMIT Internal Medicine; ATTEND Internal Medicine
DX: E11.10 Type 2 diabetes mellitus with ketoacidosis without coma (principal); N17.9 Acute kidney failure, unspecified; I69.351 Hemiplegia and hemiparesis following cerebral infarction affecting right dominant side; R45.851 Suicidal ideations; E11.40 Type 2 diabetes mellitus with diabetic neuropathy, unspecified; L30.9 Dermatitis, unspecified; F32.9 Major depressive disorder, single episode, unspecified; F41.9 Anxiety disorder, unspecified; N39.0 Urinary tract infection, site not specified; E78.5 Hyperlipidemia, unspecified; G47.00 Insomnia, unspecified; I10 Essential (primary) hypertension; Z96.652 Presence of left artificial knee joint; Z99.3 Dependence on wheelchair; Z91.19 Patient's noncompliance with other medical treatment and regimen; Z79.4 Long term (current) use of insulin; Z90.49 Acquired absence of other specified parts of digestive tract; Z91.14 Patient's other noncompliance with medication regimen; Z88.0 Allergy status to penicillin; Z91.041 Radiographic dye allergy status
CPT/HCPCS: 36415; 36600; 71045; 80048; 80053; 81001; 82010; 82150; 82435; 82550; 82803; 82947; 82948; 83605; 83690; 83735; 83880; 84100; 84132; 84295; 84484; 85018; 85025; 85610; 85730; 87040; 87804; 90732; 93005; 97039; 99291; G0378; J1815; J2405; J3475; J3490; J7042; Q0163

== ENCOUNTER 2020-05-25 05:37 | Emergency (ER) | payer MEDICARE, OTHER ==
[~2020-05-25 05:37] MED LIST changes: -AEC81 PO; -CLIN300C9 PO; +HYDR-3421 PO
[2020-05-25 06:05] LABS: BASOPHILS % (AUTO) 0.2 % (0.0-5.0); EOSINOPHILS % (AUTO) 2.1 % (0.0-8.0); HEMATOCRIT 39.9 % (36-48); LYMPHOCYTES % (AUTO) 15.6 % (21.0-51.0); MEAN CORPUSCULAR HEMOGLOBIN 28.6 pg (27.0-33.0); MEAN CORPUSCULAR HGB CONC 33.8 g/dL (32.0-36.0); MEAN CORPUSCULAR VOLUME 84.5 fL (79-99); MONOCYTES % (AUTO) 5.4 % (3.0-13.0); NEUTROPHILS % (AUTO) 76.2 % (40.0-77.0); PLATELET COUNT (AUTO) 185 K/uL (130-400); RED BLOOD CELL COUNT(AUTO) 4.72 MIL/uL (4.00-5.50); RED CELL DISTRIBUTION WIDTH 12.6 % (11.0-15.5); WHITE BLOOD COUNT (AUTO) 12.2 K/uL (4.8-10.8)
[2020-05-25 06:14] LABS: POTASSIUM 5.3 mmol/L (3.5-5.1)
[2020-05-25 06:22] LABS: INR 0.94 (0.85-1.15); PARTIAL THROMBOPLASTIN TIME 20.3 SEC (26.3-35.5); PROTHROMBIN TIME 10.2 SEC (9.6-11.6)
[2020-05-25] MEDS ORDERED: SODIUM POLYSTYRENE SULFONATE 15 GM/60 ML ML ONE (06:46)
[2020-05-25] MEDS ORDERED: KETOROLAC TROMETHAMINE 15MG/ML ONE (07:05)
== END 2020-05-25 09:05 | disposition home or self-care (01) ==
LOC: EDH 05:37
DX: S83.91XA Sprain of unspecified site of right knee, initial encounter (principal); E11.65 Type 2 diabetes mellitus with hyperglycemia; I10 Essential (primary) hypertension; E78.5 Hyperlipidemia, unspecified; Z87.891 Personal history of nicotine dependence; Z88.0 Allergy status to penicillin; Z91.013 Allergy to seafood; Z91.041 Radiographic dye allergy status; W05.0XXA Fall from non-moving wheelchair, initial encounter; Y93.89 Activity, other specified; Y92.89 Other specified places as the place of occurrence of the external cause; Y99.8 Other external cause status
CPT/HCPCS: 36415; 73562; 80048; 82948 ×2; 85025; 85610; 85730; 96361; 96374; 99284; J1885

== ENCOUNTER 2022-06-25 18:09 | Emergency (ER) | payer OTHER ==
[~2022-06-25] VITALS: Ht 160 cm; Wt 81.2 kg
[~2022-06-25 18:09] MED LIST changes: +ACAR50TA5 PO; +ACET-66 PO; +AEC81 PO; -CYCL10TA7 PO; +ERGO500093 PO; +FLUT9.9S16 EN; +FURO20TA4 PO; -GABA-531 PO; +GABA300S PO; +GLIP10TA9 PO; -INS7030 SQ; +INSU100I3 SQ; -LISI-613 PO; +LISI20TA24 PO; -METF-526 PO; +NAPR-1196 PO; +NYST5ORA7 PO; +PIOG30TA70 PO; +REPA2TAB8 PO; +TRIA10PO3 MC; -ZALE10CA26 PO; +ZOLP10TA2 PO
[2022-06-25 19:47] VITALS: BP 130/52
[2022-06-25] MEDS ORDERED: ACETAMINOPHEN 325 MG TAB PO ONE (20:30)
== END 2022-06-25 20:46 | disposition home or self-care (01) ==
LOC: EDH 18:09
DX: S40.011A Contusion of right shoulder, initial encounter (principal); S70.01XA Contusion of right hip, initial encounter; N63.0 Unspecified lump in unspecified breast; J44.9 Chronic obstructive pulmonary disease, unspecified; E11.9 Type 2 diabetes mellitus without complications; E78.00 Pure hypercholesterolemia, unspecified; I10 Essential (primary) hypertension; Z86.73 Personal history of transient ischemic attack (TIA), and cerebral infarction without residual deficits; Z79.899 Other long term (current) drug therapy; Z88.8 Allergy status to other drugs, medicaments and biological substances; Z79.82 Long term (current) use of aspirin; Z79.84 Long term (current) use of oral hypoglycemic drugs; W18.30XA Fall on same level, unspecified, initial encounter; Y93.9 Activity, unspecified; Y92.9 Unspecified place or not applicable; Y99.9 Unspecified external cause status
CPT/HCPCS: 73030; 73502

== ENCOUNTER 2022-07-15 21:56 | Emergency (ER) | payer OTHER ==
[~2022-07-15] VITALS: Ht 162.6 cm; Wt 76.2 kg
[2022-07-15 22:33] LABS: BASOPHILS % (AUTO) 0.2 % (0.0-5.0); EOSINOPHILS % (AUTO) 4.2 % (0.0-8.0); HEMATOCRIT 39.8 % (36-48); LYMPHOCYTES % (AUTO) 12.5 % (21.0-51.0); MEAN CORPUSCULAR HEMOGLOBIN 29.9 pg (27.0-33.0); MEAN CORPUSCULAR HGB CONC 33.2 g/dL (32.0-36.0); MEAN CORPUSCULAR VOLUME 90.2 fL (79-99); MONOCYTES % (AUTO) 8.4 % (3.0-13.0); NEUTROPHILS % (AUTO) 74.3 % (40.0-77.0); PLATELET COUNT (AUTO) 210 K/uL (130-400); RED BLOOD CELL COUNT(AUTO) 4.41 MIL/uL (4.00-5.50); RED CELL DISTRIBUTION WIDTH 12.3 % (11.0-15.5); WHITE BLOOD COUNT (AUTO) 9.9 K/uL (4.8-10.8)
[2022-07-15 22:42] LABS: APPEARANCE,URINE CLOUDY (CLEAR); BILIRUBIN,URINE NEGATIVE (NEGATIVE); COLOR,URINE YELLOW (YELLOW); GLUCOSE, URINE (UA) NEGATIVE (NEGATIVE); KETONES,URINE NEGATIVE (NEGATIVE); LEUKOCYTE ESTERASE ,URINE 500 Leu/uL (NEGATIVE); NITRATE,URINE NEGATIVE (NEGATIVE); OCCULT BLOOD,URINE SMALL (NEGATIVE); PROTEIN,URINE 20 mg/dL (NEGATIVE); UROBILINOGEN,URINE 0.2 mg/dL (0.2-1.0)
[2022-07-15 22:48] LABS: ALBUMIN 3.9 g/dL (3.5-5.0); CREATININE 0.9 mg/dL (0.5-1.5); TOTAL PROTEIN, SERUM 7.9 g/dL (6.0-8.3)
[2022-07-15 22:59] LABS: BACTERIA,URINE MANY /HPF (None Seen); MUCUS,URINE RARE LPF (None Seen); RBC,URINE 26-50 /HPF (0-1); SQUAMOUS EPITHELIAL CELL,UR RARE /HPF (0-2); WBC,URINE TNTC /HPF (0-1); YEAST,URINE BUDDING MANY /HPF (None Seen)
[2022-07-15 23:07] LABS: BAND NEUTROPHILS % (MANUAL) 2 % (0-2); EOSINOPHILS % (MANUAL) 9 % (1-6); LYMPHOCYTES % (MANUAL) 12 % (22-44); MAN.DIFF COMMENT-IMPRESSION MANUAL DIFFERENTIAL; MONOCYTES % (MANUAL) 4 % (2-9); PLATELET MORPHOLOGY COMMENT ADEQUATE; SEGMENTED NEUTROPHILS % 73 % (40-70)
[2022-07-15] MEDS ORDERED: MACR100 PO (23:57)
[2022-07-15] MEDS ORDERED: OSEL75 PO (23:57)
[2022-07-16] MEDS ORDERED: OSELTAMIVIR PHOSPHATE 75 MG CAP PO SCH
[2022-07-16] MEDS ORDERED: NITROFURANTOIN MONOHYD/M-CRYST 100 MG CAPSULE PO ONE
[2022-07-16 02:18] VITALS: BP 122/52
== END 2022-07-16 02:19 | disposition home or self-care (01) ==
LOC: EDH 21:56
DX: N39.0 Urinary tract infection, site not specified (principal); J10.1 Influenza due to other identified influenza virus with other respiratory manifestations; Z20.822 Contact with and (suspected) exposure to COVID-19; E11.9 Type 2 diabetes mellitus without complications; I10 Essential (primary) hypertension; Z79.1 Long term (current) use of non-steroidal anti-inflammatories (NSAID); Z79.82 Long term (current) use of aspirin; Z79.84 Long term (current) use of oral hypoglycemic drugs; Z86.73 Personal history of transient ischemic attack (TIA), and cerebral infarction without residual deficits; Z88.0 Allergy status to penicillin; Z88.8 Allergy status to other drugs, medicaments and biological substances
CPT/HCPCS: 99285; 70450; 71045; 87635; 84484; 80053; 85025 ×2; 87077; 87088; 87186; 87804 ×2; 82948; 81001; 36415; 93005 ×2; C9803

== ENCOUNTER 2022-07-21 11:57 | Emergency (ER) | payer OTHER ==
[~2022-07-21 11:57] MED LIST changes: +MACR100 PO; +OSEL75 PO
[2022-07-21 12:50] LABS: BASOPHILS % (AUTO) 0.3 % (0.0-5.0); EOSINOPHILS % (AUTO) 1.5 % (0.0-8.0); HEMATOCRIT 40.9 % (36-48); LYMPHOCYTES % (AUTO) 8.5 % (21.0-51.0); MEAN CORPUSCULAR HEMOGLOBIN 29.7 pg (27.0-33.0); MEAN CORPUSCULAR HGB CONC 33.3 g/dL (32.0-36.0); MEAN CORPUSCULAR VOLUME 89.3 fL (79-99); MONOCYTES % (AUTO) 4.7 % (3.0-13.0); NEUTROPHILS % (AUTO) 84.6 % (40.0-77.0); PLATELET COUNT (AUTO) 184 K/uL (130-400); RED BLOOD CELL COUNT(AUTO) 4.58 MIL/uL (4.00-5.50); RED CELL DISTRIBUTION WIDTH 12.2 % (11.0-15.5); WHITE BLOOD COUNT (AUTO) 11.2 K/uL (4.8-10.8)
[2022-07-21 13:02] LABS: CREATININE 0.9 mg/dL (0.5-1.5); POTASSIUM 4.1 mmol/L (3.5-5.1)
[2022-07-21 13:06] LABS: ALBUMIN 4.3 g/dL (3.5-5.0); TOTAL PROTEIN, SERUM 8.3 g/dL (6.0-8.3)
[2022-07-21 13:43] LABS: APPEARANCE,URINE CLOUDY (CLEAR); BILIRUBIN,URINE NEGATIVE (NEGATIVE); COLOR,URINE LIGHT-YELLOW (YELLOW); GLUCOSE, URINE (UA) 500 mg/dL (NEGATIVE); KETONES,URINE 5 mg/dL (NEGATIVE); LEUKOCYTE ESTERASE ,URINE 500 Leu/uL (NEGATIVE); NITRATE,URINE NEGATIVE (NEGATIVE); OCCULT BLOOD,URINE NEGATIVE (NEGATIVE); PROTEIN,URINE 10 mg/dL (NEGATIVE); UROBILINOGEN,URINE 0.2 mg/dL (0.2-1.0)
[2022-07-21 13:59] LABS: BACTERIA,URINE MANY /HPF (None Seen); MUCUS,URINE FEW LPF (None Seen); SQUAMOUS EPITHELIAL CELL,UR RARE /HPF (0-2); WBC,URINE TNTC /HPF (0-1); YEAST,URINE BUDDING FEW /HPF (None Seen)
[2022-07-21] MEDS ORDERED: 0.9%NACL 1000ML 1,000 ML IV ONE (14:00)
[2022-07-21] MEDS ORDERED: LEVOFLOXACIN 750 MG/D5W 150ML BAG IVPB SCH (15:00)
[2022-07-21] MEDS ORDERED: LEVO750T68 PO (15:34)
[2022-07-21 16:17] VITALS: BP 121/61
== END 2022-07-21 17:10 | disposition home or self-care (01) ==
LOC: EDH 11:57
DX: N39.0 Urinary tract infection, site not specified (principal); B96.20 Unspecified Escherichia coli [E. coli] as the cause of diseases classified elsewhere; Z20.822 Contact with and (suspected) exposure to COVID-19; E11.9 Type 2 diabetes mellitus without complications; J44.9 Chronic obstructive pulmonary disease, unspecified; I10 Essential (primary) hypertension; Z79.1 Long term (current) use of non-steroidal anti-inflammatories (NSAID); Z79.82 Long term (current) use of aspirin; Z79.84 Long term (current) use of oral hypoglycemic drugs; Z86.73 Personal history of transient ischemic attack (TIA), and cerebral infarction without residual deficits; Z88.0 Allergy status to penicillin; Z88.5 Allergy status to narcotic agent; Z88.8 Allergy status to other drugs, medicaments and biological substances
CPT/HCPCS: 36415; 71045; 80053; 81001; 84484; 85025; 87088; 87635; 87804; 93005; 96365; C9803; J1956